=== PATIENT | male | born 1945 | race Caucasian/White ===

== ENCOUNTER 2017-07-23 08:52 | Emergency (ER) | payer MEDICARE | END 2017-07-23 13:25 | disposition home or self-care (01) | LOC: ERS 08:52 | DX: J20.9 Acute bronchitis, unspecified (principal); E11.9 Type 2 diabetes mellitus without complications; J45.909 Unspecified asthma, uncomplicated ==

== ENCOUNTER 2018-02-12 16:18 | Emergency (ER) | payer MEDICARE ==
[~2018-02-12 16:18] MED LIST: ISOVUE-370 76%-LOCM 1 ML ONE
[2018-02-12 17:04] LABS: #Eosinphils 1.2 thou/uL (0.0-0.7); #Lymphocytes 0.8 thou/uL (1.20-3.40); #Monocytes 0.6 thou/uL (0.11-0.59); #Neutrophils 6.3 thou/uL (1.40-6.50); %Basophils 0.2 % (0.0-1.0); %Eosinophils 13.2 % (0.0-10.0); %Lymphocytes 8.6 % (21.0-51.0); %Monocytes 6.8 % (0.0-10.0); %Neutrophils 71.3 % (42.0-75.0); Mean Corpuscular HGB CONC 33.9 g/dL (32.0-36.0); Mean Corpuscular Hemoglobin 32.8 pg (27.0-31.0); Mean Corpuscular Volume 96.7 fL (78.0-98.0); Mean Platelet Volume 5.7 fL (7.4-10.4); Platelet Count 331 thou/uL (130-400); Red Blood Cell (RBC) Count 4.56 mill/uL (4.70-6.10); White Blood Cell (WBC) Count 8.9 thou/uL (4.8-10.8)
[2018-02-12] MEDS ORDERED: Ibuprofen 200 MG TAB ONE (17:22)
[2018-02-12] MEDS ORDERED: Ondansetron ODT 4 MG TAB ONE (17:22)
[2018-02-12 17:31] LABS: ALT (SGPT) 7 U/L (8-55); AST (SGOT) 13 U/L (5-34); Albumin 3.4 g/dL (3.4-4.8); Alkaline Phosphatase 94 U/L (40-150); Anion Gap 14 mmol/L (10-20); BUN (Urea Nitrogen) 9 mg/dL (8.4-25.7); Bilirubin, Total 0.5 mg/dL (0.2-1.2); Calc. Creatinine Clearance 0 mL/min (70-130); Calcium 9.1 mg/dL (7.8-10.44); Carbon Dioxide 26 mmol/L (23-31); Chloride 93 mmol/L (98-107); Estimated GFR-MDRD 75; Globulin 3.1 g/dL (2.4-3.5); Glucose 134 mg/dL (83-110); Lipase 37 U/L (8-78); Potassium 3.7 mmol/L (3.5-5.1); Protein, Total 6.5 g/dL (5.8-8.1); Sodium 129 mmol/L (136-145)
[2018-02-12 17:36] LABS: CKMB 1.5 ng/mL (0-6.6); Troponin I Less than 0.010 ng/mL (< 0.028)
--- NOTE | 2018-02-12 18:56 | RAD ---
PA AND LATERAL VIEWS OF CHEST: Date: 02/12/18 HISTORY: Chest pain. FINDINGS: Comparison made with exam of 07/12/16. The heart size is normal. The aorta is tortuous. The lungs are well expanded without lobar consolidat ion, pneumothoraces, or pleural effusions. Lower thoracic compression fracture is again seen. IMPRESSION: No radiographic evidence of acute cardiopulmonary process. POS: [facility]
[2018-02-12] MEDS ORDERED: Ondansetron HCl/PF 4 MG/2 ML Vial ONE (19:19)
--- NOTE | 2018-02-12 19:33 | CT ---
CT PULMONARY ANGIOGRAM WITH IV CONTRAST AND 3D POST PROCESSING: HISTORY: Cough. Chest pain. FINDINGS: There is good contrast opacification of the pulmonary arterial vasculature without filling defects to suggest pulmonary embolism. No aneurysmal dilatation of the thoracic aorta is seen. The thoracic a ashish is ectatic, measuring 4 cm in maximum AP dimension, in the ascending aorta. No pleural or peric ardial effusions are seen. No pneumothoraces or lobar consolidation are identified. There are mild bronchiectatic changes and mild reticulonodular infiltrates in the upper lung liu. There are dege nerative changes in the spine. Vascular calcifications are present. A small hiatal hernia is noted. IMPRESSION: No CT evidence of pulmonary embolism. POS: [facility]
== END 2018-02-12 20:02 | disposition home or self-care (01) ==
LOC: ERS 16:18
DX: M54.6 Pain in thoracic spine (principal); E87.1 Hypo-osmolality and hyponatremia; I10 Essential (primary) hypertension
CPT/HCPCS: 36415; 71046; 71275; 80053; 82553; 83690; 84484; 85025; 93005; 96374; J2405; Q0162

== ENCOUNTER 2018-02-20 10:04 | Emergency (ER) | payer MEDICARE | END 2018-02-20 12:02 | disposition home or self-care (01) | LOC: ERS 10:04 | DX: R09.89 Other specified symptoms and signs involving the circulatory and respiratory systems (principal); I10 Essential (primary) hypertension; E11.9 Type 2 diabetes mellitus without complications; J45.909 Unspecified asthma, uncomplicated | CPT/HCPCS: 99283 ==

== ENCOUNTER 2020-12-25 17:48 | Inpatient (IN) | payer MEDICARE ==
[~2020-12-25 17:48] MED LIST changes: -ISOVUE-370 76%-LOCM 1 ML ONE; +Iopamidol-370 76% 500 ML 1 ML ONE
[2020-12-25 18:23] LABS: Bacteria/HPF None Seen HPF (None Seen); Bilirubin Negative (Negative); Blood, Urine Trace (Negative); Clarity Clear (Clear); Glucose, Urine (Dipstick) Normal (Negative); Ketone, Urine Negative (Negative); Leukocyte Negative Leu/uL (Negative); Nitrite Negative (Negative); Protein, Urine (Dipstick) 50 mg/dL (Neg-Trace); Specific Gravity, Urine 1.026 (1.002-1.036); Squamous Epithelial None Seen HPF (0-3); WBC/HPF 0-3 HPF (0-3); pH, Urine 5.5 (5.0-9.0)
[2020-12-25 18:26] LABS: Hemoglobin 15.3 g/dL (14.0-18.0); Mean Corpuscular HGB CONC 33.2 g/dL (32.0-36.0); Mean Corpuscular Hemoglobin 31.1 pg (27.0-31.0); Mean Corpuscular Volume 93.6 fL (78.0-98.0); Mean Platelet Volume 5.8 fL (7.4-10.4); Platelet Count 402 thou/uL (130-400); RBC Distribution Width 12.5 % (11.5-14.5); White Blood Cell (WBC) Count 19.1 thou/uL (4.8-10.8)
[2020-12-25 18:38] LABS: Band 12 % (5-11); Eosinophils 5 % (0-10); Lymphocytes 3 % (21-51); MDiff Complete? YES; Monocytes 6 % (0-10); Neutrophil 73 % (42-75); Platelet Morphology Comment Appears Increased; RBC Morphology Normal; Reactive Lymphocytes 1 % (0-10)
[2020-12-25 18:44] LABS: ALT (SGPT) 10 U/L (8-55); AST (SGOT) 13 U/L (5-34); Albumin 3.3 g/dL (3.4-4.8); Alkaline Phosphatase 111 U/L (40-110); Anion Gap 13 mmol/L (10-20); BUN (Urea Nitrogen) 11 mg/dL (8.4-25.7); Bilirubin, Total 0.6 mg/dL (0.2-1.2); Calc. Creatinine Clearance 0 mL/min (70-130); Calcium 9.8 mg/dL (7.8-10.44); Carbon Dioxide 28 mmol/L (23-31); Chloride 92 mmol/L (98-107); Globulin 3.1 g/dL (2.4-3.5); Glucose 177 mg/dL (83-110); Lipase 24 U/L (8-78); Magnesium 1.6 mg/dL (1.6-2.6); Potassium 4.4 mmol/L (3.5-5.1); Protein, Total 6.4 g/dL (5.8-8.1); Sodium 129 mmol/L (136-145)
[2020-12-25] MEDS ORDERED: Ondansetron PF 4 MG/2 ML Vial ONE (21:33)
[2020-12-25] MEDS ORDERED: Sodium Chloride 0.9% 1,000 ML IV SCH (23:45)
[2020-12-26 00:27] VITALS: BMI 19.4
[2020-12-26] MEDS ORDERED: Famotidine/PF 20 mg/2ml Vial SLOW IVP SCH (09:00)
[2020-12-26] MEDS ORDERED: Bisacodyl 5 MG TAB PO PRN (09:08)
[2020-12-26] MEDS ORDERED: Ondansetron PF 4 MG/2 ML Vial IVP PRN (09:08)
[2020-12-26] MEDS ORDERED: Morphine 2 MG/ML VIAL SLOW IVP PRN (09:08)
[2020-12-26] MEDS ORDERED: Piperacillin/Tazobactam 3.375 GM in Sodium Chloride 0.9% 100 ML IVPB SCH ×2 (12:00→20:00)
[2020-12-26] MEDS ORDERED: Dextrose 50% Abboject 50 ML SYRINGE SLOW IVP PRN (13:26)
[2020-12-26] MEDS ORDERED: HumaLOG 300 UNITS/3 ML VIAL SC PRN (13:26)
[2020-12-26] MEDS ORDERED: Dextrose 5% in Water 1,000 ML IV PRN (13:26)
[2020-12-26 16:09] VITALS: BP 140/87; TEMP 97.3
[2020-12-26 20:58] LABS: SARS-CoV-2 PCR by NAA Not Detected (NotDetected)
[2020-12-27] MEDS ORDERED: Enoxaparin Sodium 40 MG/0.4 ML SYRINGE SC SCH (09:00)
== END 2020-12-26 19:31 | disposition home or self-care (01) | DRG 389 ==
LOC: ERS 17:48 → SURG B 21:58
PROVIDERS: ADMIT Student in an Organized Health Care Education/Training Program; ATTEND Student in an Organized Health Care Education/Training Program
PROC: 0D9670Z Drainage of Stomach with Drainage Device, Via Natural or Artificial Opening (ICD-10-PCS; principal; 2020-12-25)
DX: K56.699 Other intestinal obstruction unspecified as to partial versus complete obstruction (principal); E87.1 Hypo-osmolality and hyponatremia; K59.00 Constipation, unspecified; Z20.822 Contact with and (suspected) exposure to COVID-19; Z66 Do not resuscitate; Z53.29 Procedure and treatment not carried out because of patient's decision for other reasons; E11.9 Type 2 diabetes mellitus without complications; I10 Essential (primary) hypertension; D72.829 Elevated white blood cell count, unspecified; J44.9 Chronic obstructive pulmonary disease, unspecified; Z79.84 Long term (current) use of oral hypoglycemic drugs; Z79.899 Other long term (current) drug therapy
CPT/HCPCS: 36415; 36416; 74018; 74177; 80053; 81003; 81015; 83690; 83735; 84484; 85025; 87040; 93005; 96374; J2405; J2543; J3490; J7050; Q9967; S0028; U0003; U0005

== ENCOUNTER 2021-01-04 10:52 | Outpatient (CLI) | payer MEDICARE ==
[2021-01-05 00:58] LABS: SARS-CoV-2 PCR by NAA Not Detected (NotDetected)
== END 2021-01-04 10:53 | disposition home or self-care (01) ==
LOC: LABBT 10:52
PROVIDERS: ATTEND Physician Assistant
DX: Z01.812 Encounter for preprocedural laboratory examination (principal); Z20.822 Contact with and (suspected) exposure to COVID-19
CPT/HCPCS: U0003; U0005

== ENCOUNTER 2021-01-08 08:22 | Outpatient (CLI) | payer MEDICARE ==
[2021-01-08] MEDS ORDERED: MD-Gastroview 120 ML BOT ONE (09:20)
== END 2021-01-08 08:23 | disposition home or self-care (01) ==
LOC: RAD 08:22
PROVIDERS: ATTEND Physician Assistant
DX: K56.609 Unspecified intestinal obstruction, unspecified as to partial versus complete obstruction (principal); K44.9 Diaphragmatic hernia without obstruction or gangrene
CPT/HCPCS: 74250; Q9963

== ENCOUNTER 2021-04-16 15:00 | Outpatient (CLI) | payer MEDICARE ==
[2021-04-16 18:53] LABS: Hemoglobin 12.2 g/dL (13.5-17.5); Mean Corpuscular HGB CONC 32.4 g/dL (32.0-36.0); Mean Corpuscular Hemoglobin 29.8 pg (27.0-33.0); Mean Corpuscular Volume 91.9 fl (81.2-95.1); Mean Platelet Volume 8.6 fl (7.4-10.4); Platelet Count 354 10x3/uL (150-450); RBC Distribution Width 13.2 % (11.5-14.5); Red Blood Cell (RBC) Count 4.09 10x6/uL (4.32-5.72); White Blood Cell (WBC) Count 6.1 10x3/uL (3.5-10.5)
[2021-04-16 19:03] LABS: Anion Gap 11 mmol/L (10-20); BUN (Urea Nitrogen) 13 mg/dL (8.4-25.7); Calc. Creatinine Clearance 0 mL/min (70-130); Carbon Dioxide 29 mmol/L (23-31); Chloride 99 mmol/L (98-107); Glucose 174 mg/dL (83-110); Potassium 4.3 mmol/L (3.5-5.1); Sodium 135 mmol/L (136-145)
[2021-04-17 18:14] LABS: SARS-CoV-2 PCR by NAA Not Detected (NotDetected)
== END 2021-04-16 15:01 | disposition home or self-care (01) ==
LOC: LABBT 15:00
PROVIDERS: ATTEND Otolaryngology Plastic Surgery within the Head & Neck
DX: Z01.812 Encounter for preprocedural laboratory examination (principal); C44.42 Squamous cell carcinoma of skin of scalp and neck; Z20.822 Contact with and (suspected) exposure to COVID-19
CPT/HCPCS: 80048; 85027; 93005; U0003; U0005; 93010

== ENCOUNTER 2021-04-21 09:50 | Day surgery (SDC) | payer MEDICARE ==
[2021-04-20 11:55] VITALS: BMI 23.6
[2021-04-21] MEDS ORDERED: Lidocaine 1% w/Epinephrine 1:100K 20 ML VIAL ONE (12:42)
[2021-04-21] MEDS ORDERED: Mineral Oil Sterile 10 ML VIAL ONE (12:42)
[2021-04-21] MEDS ORDERED: Famotidine/PF 20 mg/2ml Vial ONE (12:50)
[2021-04-21] MEDS ORDERED: Fentanyl 100 MCG/2 ML VIAL ONE (12:50)
[2021-04-21] MEDS ORDERED: Lidocaine 1% PF 5 ML VIAL ONE (13:01)
[2021-04-21] MEDS ORDERED: ePHEDrine 50 MG/ML VIAL ONE (13:01)
[2021-04-21] MEDS ORDERED: Metoclopramide HCl 10 MG/2 ML VIAL ONE (13:01)
[2021-04-21] MEDS ORDERED: PROPOFOL 200 MG/20 ML VIAL ONE (13:01)
[2021-04-21] MEDS ORDERED: Ondansetron PF 4 MG/2 ML Vial ONE (13:01)
== END 2021-04-21 15:18 | disposition home or self-care (01) ==
LOC: SDC 09:50
PROVIDERS: ATTEND Otolaryngology Plastic Surgery within the Head & Neck
PROC: 0HB0XZZ Excision of Scalp Skin, External Approach (ICD-10-PCS; principal; 2021-04-21)
DX: D04.4 Carcinoma in situ of skin of scalp and neck (principal); J45.909 Unspecified asthma, uncomplicated; E11.9 Type 2 diabetes mellitus without complications; Z85.46 Personal history of malignant neoplasm of prostate; Z87.891 Personal history of nicotine dependence; Z79.84 Long term (current) use of oral hypoglycemic drugs; Z79.899 Other long term (current) drug therapy
CPT/HCPCS: 88305; 88331; J2405; J2704; J2765; J3010; J3490; S0028

== ENCOUNTER 2021-10-05 16:11 | Outpatient (CLI) | payer MEDICARE | END 2021-10-05 16:12 | disposition home or self-care (01) | LOC: SCSRAD 16:11 | PROVIDERS: ATTEND Physician Assistant | DX: L29.9 Pruritus, unspecified (principal); R91.8 Other nonspecific abnormal finding of lung field | CPT/HCPCS: 71046 ==

== ENCOUNTER 2021-11-02 16:01 | Outpatient (CLI) | payer MEDICARE ==
[2021-11-02 16:58] LABS: #Basophils 0.1 10x3/uL (0.0-0.2); #Eosinphils 0.8 10x3/uL (0.0-0.5); #Monocytes 0.8 10x3/uL (0.0-1.1); #Neutrophils 4.9 10x3/uL (1.5-8.4); %Basophils 0.7 % (0.0-2.0); %Lymphocytes 10.5 % (18.0-47.0); %Monocytes 10.7 % (0.0-10.0); %Neutrophils 66.8 % (40.0-75.0); Hemoglobin 12.3 g/dL (13.5-17.5); Mean Corpuscular HGB CONC 33.4 g/dL (32.0-36.0); Mean Corpuscular Hemoglobin 30.4 pg (27.0-33.0); Mean Corpuscular Volume 91.1 fl (81.2-95.1); Mean Platelet Volume 8.8 fl (7.4-10.4); Platelet Count 306 10x3/uL (150-450); RBC Distribution Width 14.4 % (11.5-14.5); Red Blood Cell (RBC) Count 4.04 10x6/uL (4.32-5.72); White Blood Cell (WBC) Count 7.4 10x3/uL (3.5-10.5)
[2021-11-02 17:19] LABS: Anion Gap 11 mmol/L (10-20); BUN (Urea Nitrogen) 17 mg/dL (8.4-25.7); Calc. Creatinine Clearance 0 mL/min (70-130); Carbon Dioxide 29 mmol/L (23-31); Chloride 95 mmol/L (98-107); Estimated GFR 67; Glucose 159 mg/dL (83-110); Potassium 4.3 mmol/L (3.5-5.1); Sodium 131 mmol/L (136-145)
== END 2021-11-02 16:02 | disposition home or self-care (01) ==
LOC: LABBT 16:01
PROVIDERS: ATTEND Specialist
DX: Z01.812 Encounter for preprocedural laboratory examination (principal); Z20.822 Contact with and (suspected) exposure to COVID-19
CPT/HCPCS: 80048; 85025; 87811

== ENCOUNTER 2021-11-05 08:44 | Day surgery (SDC) | payer MEDICARE ==
[2021-11-03 10:29] VITALS: BMI 21.2
[2021-11-05] MEDS ORDERED: Bupivacaine 0.25% HCL 30 ML VIAL ONE (09:11)
[2021-11-05] MEDS ORDERED: Lidocaine 1% w/Epinephrine 1:100K 20 ML VIAL ONE (09:11)
[2021-11-05] MEDS ORDERED: Gabapentin 300 MG CAP ONE (09:27)
[2021-11-05] MEDS ORDERED: Acetaminophen 500 MG TAB ONE (09:27)
[2021-11-05] MEDS ORDERED: Ketorolac Tromethamine 30 MG/ML VIAL ONE (09:28)
[2021-11-05] MEDS ORDERED: SUGAMMADEX SODIUM 200 MG/2 ML VIAL ONE (09:59)
[2021-11-05] MEDS ORDERED: fentaNYL Citrate/PF 100 MCG/2 ML SYRINGE ONE (09:59)
[2021-11-05] MEDS ORDERED: Sodium Chloride 0.9% 100 ML ONE (10:03)
[2021-11-05] MEDS ORDERED: CEFAZOLIN 2 GM VIAL ONE (10:03)
[2021-11-05] MEDS ORDERED: Lidocaine 1% PF 5 ML VIAL ONE (10:15)
[2021-11-05] MEDS ORDERED: Dexamethasone 20 MG/5 ML VIAL ONE (10:15)
[2021-11-05] MEDS ORDERED: Rocuronium Bromide 10 MG/ML (10ML VIAL) ONE (10:15)
[2021-11-05] MEDS ORDERED: PROPOFOL 200 MG/20 ML VIAL ONE (10:15)
[2021-11-05] MEDS ORDERED: Ondansetron PF 4 MG/2 ML Vial ONE ×2 (10:15→12:23)
[2021-11-05] MEDS ORDERED: Fentanyl 100 MCG/2 ML VIAL ONE ×2 (11:52→12:09)
== END 2021-11-05 14:03 | disposition home or self-care (01) ==
LOC: SDC 08:44
PROVIDERS: ATTEND Specialist
PROC: 8E0W4CZ Robotic Assisted Procedure of Trunk Region, Percutaneous Endoscopic Approach (ICD-10-PCS; principal; 2021-11-05)
PROC: 0YU84JZ Supplement Left Femoral Region with Synthetic Substitute, Percutaneous Endoscopic Approach (ICD-10-PCS; 2021-11-05)
DX: K41.90 Unilateral femoral hernia, without obstruction or gangrene, not specified as recurrent (principal); K66.0 Peritoneal adhesions (postprocedural) (postinfection); I10 Essential (primary) hypertension; J45.909 Unspecified asthma, uncomplicated; E11.9 Type 2 diabetes mellitus without complications; Z85.46 Personal history of malignant neoplasm of prostate; Z87.891 Personal history of nicotine dependence; Z79.84 Long term (current) use of oral hypoglycemic drugs; Z79.899 Other long term (current) drug therapy
CPT/HCPCS: 49659; C1781; J0690; J1100; J1885; J2405; J2704; J3010; J3490; S0020

== ENCOUNTER 2022-04-20 16:10 | Outpatient (CLI) | payer OTHER | END 2022-04-20 16:11 | disposition home or self-care (01) | LOC: BICRAD 16:10 | PROVIDERS: ATTEND Nurse Practitioner Family | DX: R05.9 Cough, unspecified (principal) | CPT/HCPCS: 71046; U0003; U0005 ==

== ENCOUNTER 2022-06-01 17:30 | Outpatient (CLI) | payer OTHER | END 2022-06-01 17:31 | disposition home or self-care (01) | LOC: SLEEPLAB 17:30 | PROVIDERS: ATTEND Nurse Practitioner Family | DX: G47.33 Obstructive sleep apnea (adult) (pediatric) (principal) | CPT/HCPCS: 95800 ==

== ENCOUNTER 2022-12-01 09:00 | Inpatient (IN) | payer OTHER ==
[2022-12-01] MEDS ORDERED: methylPREDNISolone Sod Succ/PF 125 MG/2 ML VIAL ONE (09:20)
[2022-12-01] MEDS ORDERED: Magnesium 2 GM/50 ML BAG (IN WATER) ONE (09:20)
[2022-12-01] MEDS ORDERED: LevoFLOXacin 750 mg/D5W 150 ml Premix Bag ONE (09:20)
[2022-12-01] MEDS ORDERED: Ipratropium/Albuterol 3 ML NEB ONE ×2 (09:32→10:08)
[2022-12-01 09:38] LABS: #Eosinphils 0.1 thou/uL (0.0-0.7); #Monocytes 1.1 thou/uL (0.11-0.59); #Neutrophils 4.9 thou/uL (1.40-6.50); %Basophils 0.1 % (0.0-1.0); %Eosinophils 1.1 % (0.0-10.0); %Lymphocytes 15.4 % (21.0-51.0); Hemoglobin 13.8 g/dL (14.0-18.0); Mean Corpuscular HGB CONC 35.4 g/dL (32.0-36.0); Mean Corpuscular Hemoglobin 30.7 pg (27.0-31.0); Mean Corpuscular Volume 86.7 fl (78.0-98.0); Mean Platelet Volume 8.5 fL (7.4-10.4); Platelet Count 341 10x3/uL (130-400); RBC Distribution Width 14.9 % (11.5-14.5); White Blood Cell (WBC) Count 7.1 10x3/uL (4.8-10.8)
[2022-12-01 10:05] LABS: ALT (SGPT) 10 U/L (8-55); AST (SGOT) 16 U/L (5-34); Albumin 3.2 g/dL (3.4-4.8); Alkaline Phosphatase 77 U/L (40-110); Anion Gap 13 mmol/L (10-20); BUN (Urea Nitrogen) 17 mg/dL (8.4-25.7); Bilirubin, Total 0.6 mg/dL (0.2-1.2); Calc. Creatinine Clearance 0 mL/min (70-130); Calcium 8.9 mg/dL (7.8-10.44); Carbon Dioxide 28 mmol/L (23-31); Chloride 88 mmol/L (98-107); Estimated GFR 90; Globulin 2.9 g/dL (2.4-3.5); Glucose 173 mg/dL (83-110); Lipase 27 U/L (8-78); Magnesium 1.6 mg/dL (1.6-2.6); Potassium 4.5 mmol/L (3.5-5.1); Protein, Total 6.1 g/dL (5.8-8.1); Sodium 124 mmol/L (136-145)
[2022-12-01] MEDS ORDERED: Acetaminophen 325 MG TAB PO PRN (11:19)
[2022-12-01] MEDS ORDERED: Dextrose 5% in Water 1,000 ML IV PRN (11:19)
[2022-12-01] MEDS ORDERED: Dextrose 50% Abboject 50 ML SYRINGE SLOW IVP PRN (11:19)
[2022-12-01] MEDS ORDERED: Ondansetron PF 4 MG/2 ML Vial IVP PRN (11:19)
[2022-12-01] MEDS ORDERED: Glucagon 1 MG/ML KIT IM PRN (11:19)
[2022-12-01 12:10] VITALS: BMI 17.3
[2022-12-01] MEDS: Ipratropium/Albuterol 3 ML NEB NEB SCH ×3 (13:04→21:30)
[2022-12-01] MEDS: methylPREDNISolone Sod Succ 40 MG VIAL IVP SCH ×3 (13:13→23:49)
[2022-12-01] MEDS: HumaLOG 300 UNITS/3 ML VIAL SC PRN ×2 (17:48→21:15)
[2022-12-01] MEDS: Mometasone 200 MCG/Formoterol 5 MCG 120 PUFF INHALER INH SCH (18:42)
[2022-12-01] MEDS: Atorvastatin Calcium 40 MG TAB PO SCH (21:00)
[2022-12-01] MEDS: Famotidine 20 MG TAB PO SCH (21:01)
[2022-12-01] MEDS: guaiFENesin ER 600 MG TAB PO SCH (21:01)
[2022-12-01] MEDS: Doxycycline 100 MG CAP PO SCH (21:01)
[2022-12-01] MEDS: Carvedilol 6.25 MG TAB PO SCH (21:01)
[2022-12-01] MEDS: Sacubitril 49 MG/Valsartan 51 MG TABLET PO SCH (21:02)
[2022-12-02] MEDS: Ipratropium/Albuterol 3 ML NEB NEB SCH ×6 (01:16→21:58)
[2022-12-02] MEDS: methylPREDNISolone Sod Succ 40 MG VIAL IVP SCH ×4 (05:14→23:27)
[2022-12-02] MEDS: HumaLOG 300 UNITS/3 ML VIAL SC PRN ×4 (05:15→21:25)
[2022-12-02 06:01] LABS: #Monocytes 0.4 thou/uL (0.11-0.59); #Neutrophils 6.7 thou/uL (1.40-6.50); %Basophils 0.1 % (0.0-1.0); %Lymphocytes 6.1 % (21.0-51.0); %Monocytes 5.5 % (0.0-10.0); %Neutrophils 87.8 % (42.0-75.0); Hemoglobin 12.3 g/dL (14.0-18.0); Mean Corpuscular HGB CONC 34.5 g/dL (32.0-36.0); Mean Corpuscular Hemoglobin 30.2 pg (27.0-31.0); Mean Corpuscular Volume 87.7 fl (78.0-98.0); Mean Platelet Volume 8.7 fL (7.4-10.4); Platelet Count 306 10x3/uL (130-400); RBC Distribution Width 14.9 % (11.5-14.5); Red Blood Cell (RBC) Count 4.07 mill/uL (4.70-6.10); White Blood Cell (WBC) Count 7.6 10x3/uL (4.8-10.8)
[2022-12-02 06:32] LABS: Anion Gap 11 mmol/L (10-20); BUN (Urea Nitrogen) 15 mg/dL (8.4-25.7); Calc. Creatinine Clearance 64 mL/min (70-130); Calcium 8.6 mg/dL (7.8-10.44); Carbon Dioxide 29 mmol/L (23-31); Chloride 89 mmol/L (98-107); Estimated GFR 90; Glucose 179 mg/dL (83-110); Potassium 4.5 mmol/L (3.5-5.1); Sodium 124 mmol/L (136-145)
[2022-12-02] MEDS: Mometasone 200 MCG/Formoterol 5 MCG 120 PUFF INHALER INH SCH ×2 (06:59→18:47)
[2022-12-02] MEDS: Famotidine 20 MG TAB PO SCH ×2 (10:29→20:33)
[2022-12-02] MEDS: Sertraline 25 MG TAB PO SCH (10:29)
[2022-12-02] MEDS: Aspirin 81 mg Enteric Coated Tablet PO SCH (10:30)
[2022-12-02] MEDS: Magnesium Oxide 400 MG TAB PO SCH (10:30)
[2022-12-02] MEDS: guaiFENesin ER 600 MG TAB PO SCH ×2 (10:31→20:33)
[2022-12-02] MEDS: Spironolactone 25 MG TAB PO SCH (10:31)
[2022-12-02] MEDS: Carvedilol 6.25 MG TAB PO SCH ×2 (10:31→20:33)
[2022-12-02] MEDS: Ferrous Sulfate 325 MG TAB PO SCH (10:32)
[2022-12-02] MEDS: Doxycycline 100 MG CAP PO SCH ×2 (10:32→20:33)
[2022-12-02] MEDS: Sacubitril 49 MG/Valsartan 51 MG TABLET PO SCH ×2 (10:33→20:34)
[2022-12-02] MEDS ORDERED: Linaclotide [Linzess] 145 MCG Capsule PO SCH (17:45)
[2022-12-02] MEDS: Atorvastatin Calcium 40 MG TAB PO SCH (20:33)
[2022-12-03] MEDS: Ipratropium/Albuterol 3 ML NEB NEB SCH ×3 (01:36→10:48)
[2022-12-03] MEDS: methylPREDNISolone Sod Succ 40 MG VIAL IVP SCH ×2 (05:25→11:32)
[2022-12-03] MEDS: Mometasone 200 MCG/Formoterol 5 MCG 120 PUFF INHALER INH SCH (07:30)
[2022-12-03] MEDS: Magnesium Oxide 400 MG TAB PO SCH (07:58)
[2022-12-03] MEDS: Spironolactone 25 MG TAB PO SCH (07:59)
[2022-12-03] MEDS: Aspirin 81 mg Enteric Coated Tablet PO SCH (07:59)
[2022-12-03] MEDS: Doxycycline 100 MG CAP PO SCH (07:59)
[2022-12-03] MEDS: guaiFENesin ER 600 MG TAB PO SCH (07:59)
[2022-12-03] MEDS: Famotidine 20 MG TAB PO SCH (07:59)
[2022-12-03] MEDS: Carvedilol 6.25 MG TAB PO SCH (07:59)
[2022-12-03] MEDS: Sertraline 25 MG TAB PO SCH (07:59)
[2022-12-03] MEDS: Ferrous Sulfate 325 MG TAB PO SCH (07:59)
[2022-12-03] MEDS: Sacubitril 49 MG/Valsartan 51 MG TABLET PO SCH (08:00)
[2022-12-03 08:19] VITALS: TEMP 97.6
[2022-12-03] MEDS ORDERED: Linaclotide [Linzess] 145 MCG Capsule PO SCH (09:00)
[2022-12-03] MEDS: HumaLOG 300 UNITS/3 ML VIAL SC PRN (11:30)
[2022-12-03 11:36] VITALS: BP 118/70
== END 2022-12-03 12:56 | disposition home or self-care (01) | DRG 191 ==
LOC: ERS 09:00 → T4-B 11:49 → OBSVTOIN 12-02 12:55
PROVIDERS: ADMIT Internal Medicine; ATTEND Internal Medicine
DX: J44.1 Chronic obstructive pulmonary disease with (acute) exacerbation (principal); E87.1 Hypo-osmolality and hyponatremia; Z95.811 Presence of heart assist device; I50.22 Chronic systolic (congestive) heart failure; I11.0 Hypertensive heart disease with heart failure; I25.10 Atherosclerotic heart disease of native coronary artery without angina pectoris; E11.9 Type 2 diabetes mellitus without complications; Z79.82 Long term (current) use of aspirin; Z79.899 Other long term (current) drug therapy; Z90.79 Acquired absence of other genital organ(s); Z90.89 Acquired absence of other organs; Z98.890 Other specified postprocedural states; Z87.891 Personal history of nicotine dependence
CPT/HCPCS: 36415; 36416; 71045; 80048; 80053; 83605; 83690; 83735; 83880; 84484; 85025; 93005; 94640; 94664; 94667; 94668; 96365; 96367; 96372; 96375; 96376; G0378; J1650; J1815; J1956; J2405; J2920; J2930; J3475; J7620

== ENCOUNTER 2023-03-08 11:19 | Inpatient (IN) | payer OTHER ==
[2023-03-08] MEDS ORDERED: Ondansetron PF 4 MG/2 ML Vial IVP PRN (13:24)
[2023-03-08] MEDS ORDERED: Morphine 2 MG/ML VIAL SLOW IVP PRN (13:24)
[2023-03-08 13:25] LABS: #Eosinphils 0.5 thou/uL (0.0-0.7); #Monocytes 0.7 thou/uL (0.11-0.59); #Neutrophils 7.5 thou/uL (1.40-6.50); %Basophils 0.2 % (0.0-1.0); %Eosinophils 5.4 % (0.0-10.0); %Lymphocytes 6.6 % (21.0-51.0); %Monocytes 7.8 % (0.0-10.0); %Neutrophils 78.8 % (42.0-75.0); Hemoglobin 11.3 g/dL (14.0-18.0); Mean Corpuscular HGB CONC 34.2 g/dL (32.0-36.0); Mean Corpuscular Hemoglobin 32.9 pg (27.0-31.0); Mean Corpuscular Volume 96.2 fl (78.0-98.0); Mean Platelet Volume 8.8 fL (7.4-10.4); Platelet Count 305 10x3/uL (130-400); RBC Distribution Width 12.8 % (11.5-14.5); Red Blood Cell (RBC) Count 3.43 mill/uL (4.70-6.10); White Blood Cell (WBC) Count 9.5 10x3/uL (4.8-10.8)
[2023-03-08] MEDS ORDERED: Cyclobenzaprine 10 MG TAB PO PRN (13:28)
[2023-03-08 13:38] LABS: PTT 25.6 sec (22.9-36.1)
[2023-03-08 13:46] LABS: INR-International Normal Ratio 1.2; Prothrombin Time 15.5 sec (12.0-14.7)
[2023-03-08 13:51] LABS: Troponin I 0.014 ng/mL (< 0.028)
[2023-03-08 14:07] LABS: ALT (SGPT) 20 U/L (8-55); AST (SGOT) 25 U/L (5-34); Albumin 2.6 g/dL (3.4-4.8); Alkaline Phosphatase 92 U/L (40-110); Anion Gap 15 mmol/L (10-20); BUN (Urea Nitrogen) 25 mg/dL (8.4-25.7); Bilirubin, Total 0.3 mg/dL (0.2-1.2); Calc. Creatinine Clearance 0 mL/min (70-130); Calcium 8.1 mg/dL (7.8-10.44); Carbon Dioxide 24 mmol/L (23-31); Chloride 93 mmol/L (98-107); Estimated GFR 87; Globulin 2.4 g/dL (2.4-3.5); Glucose 271 mg/dL (83-110); Sodium 128 mmol/L (136-145)
[2023-03-08] MEDS ORDERED: Glucagon 1 MG/ML KIT IM PRN (14:49)
[2023-03-08] MEDS ORDERED: Dextrose 50% Abboject 50 ML SYRINGE SLOW IVP PRN (14:49)
[2023-03-08] MEDS ORDERED: Dextrose 5% in Water 1,000 ML IV PRN (14:49)
[2023-03-08] MEDS: Ipratropium/Albuterol 3 ML NEB NEB SCH ×2 (17:23→18:49)
[2023-03-08] MEDS: Acetaminophen 500 MG TAB PO SCH ×2 (17:23→22:22)
[2023-03-08] MEDS: traMADol HCl 50 MG TAB PO SCH ×2 (17:24→22:22)
[2023-03-08] MEDS: HumaLOG 300 UNITS/3 ML VIAL SC PRN ×2 (17:50→20:23)
[2023-03-08 18:28] VITALS: BMI 19.3
[2023-03-08] MEDS: Famotidine/PF 20 mg/2ml Vial SLOW IVP SCH (20:19)
[2023-03-08] MEDS: Senokot S 8.6-50 MG TAB PO SCH (20:19)
[2023-03-08] MEDS: Insulin Glargine 30 UNITS/0.3 ML VIAL SC SCH (20:20)
[2023-03-08] MEDS ORDERED: Atorvastatin Calcium 40 MG TAB PO SCH (21:00)
[2023-03-09] MEDS: traMADol HCl 50 MG TAB PO SCH ×4 (05:16→23:52)
[2023-03-09] MEDS: Acetaminophen 500 MG TAB PO SCH ×4 (05:16→23:52)
[2023-03-09 05:43] LABS: #Eosinphils 0.7 thou/uL (0.0-0.7); #Monocytes 0.7 thou/uL (0.11-0.59); #Neutrophils 5.2 thou/uL (1.40-6.50); %Basophils 0.4 % (0.0-1.0); %Eosinophils 8.8 % (0.0-10.0); %Lymphocytes 11.9 % (21.0-51.0); %Monocytes 9.4 % (0.0-10.0); %Neutrophils 68.1 % (42.0-75.0); Hematocrit 33.7 % (42.0-52.0); Hemoglobin 11.4 g/dL (14.0-18.0); Mean Corpuscular HGB CONC 33.8 g/dL (32.0-36.0); Mean Corpuscular Hemoglobin 32.6 pg (27.0-31.0); Mean Corpuscular Volume 96.3 fl (78.0-98.0); Mean Platelet Volume 8.9 fL (7.4-10.4); Platelet Count 278 10x3/uL (130-400); RBC Distribution Width 13.1 % (11.5-14.5); White Blood Cell (WBC) Count 7.6 10x3/uL (4.8-10.8)
[2023-03-09 05:54] LABS: INR-International Normal Ratio 1.2; PTT 29.3 sec (22.9-36.1); Prothrombin Time 15.8 sec (12.0-14.7)
[2023-03-09 06:10] LABS: Anion Gap 11 mmol/L (10-20); BUN (Urea Nitrogen) 22 mg/dL (8.4-25.7); Calc. Creatinine Clearance 75 mL/min (70-130); Calcium 8.2 mg/dL (7.8-10.44); Carbon Dioxide 28 mmol/L (23-31); Chloride 95 mmol/L (98-107); Estimated GFR 91; Glucose 60 mg/dL (83-110); Magnesium 1.3 mg/dL (1.6-2.6); Potassium 3.4 mmol/L (3.5-5.1); Sodium 131 mmol/L (136-145)
[2023-03-09] MEDS ORDERED: Magnesium Sulfate In Water 4 GM in Premix 1 BAG IVPB SCH (08:30)
[2023-03-09] MEDS ORDERED: Potassium Phosphate 30 MMOL in Sodium Chloride 0.9% 250 ML 250 ML IVPB SCH (08:30)
[2023-03-09] MEDS ORDERED: Aspirin 81 mg Enteric Coated Tablet PO SCH (09:00)
[2023-03-09] MEDS: Senokot S 8.6-50 MG TAB PO SCH ×2 (09:28→20:29)
[2023-03-09] MEDS: Polyethylene Glycol 3350 17 GM Packet PO SCH (09:28)
[2023-03-09] MEDS: Spironolactone 25 MG TAB PO SCH (09:28)
[2023-03-09] MEDS: Carvedilol 6.25 MG TAB PO SCH ×2 (09:29→17:43)
[2023-03-09] MEDS: Famotidine/PF 20 mg/2ml Vial SLOW IVP SCH ×2 (09:29→20:29)
[2023-03-09] MEDS: Insulin Glargine 30 UNITS/0.3 ML VIAL SC SCH ×2 (09:32→20:30)
[2023-03-09] MEDS: Ipratropium/Albuterol 3 ML NEB NEB SCH ×2 (11:15→19:39)
[2023-03-09] MEDS: Sacubitril 49 MG/Valsartan 51 MG TABLET PO SCH (20:29)
[2023-03-09] MEDS: Atorvastatin Calcium 40 MG TAB PO SCH (20:29)
[2023-03-09] MEDS ORDERED: CEFAZOLIN 2 GM in Sodium Chloride 0.9% 100 ML IVPB SCH (20:45)
[2023-03-10] MEDS: Acetaminophen 500 MG TAB PO SCH ×4 (05:54→23:10)
[2023-03-10] MEDS: traMADol HCl 50 MG TAB PO SCH (05:54)
[2023-03-10] MEDS: Ipratropium/Albuterol 3 ML NEB NEB SCH ×3 (06:55→19:28)
[2023-03-10] MEDS ORDERED: fentaNYL 50 mcg/mL 1 mL Vial ONE (07:01)
[2023-03-10] MEDS ORDERED: Phenylephrine 10 MG/ML VIAL ONE (07:02)
[2023-03-10] MEDS ORDERED: Midazolam HCl 2 mg/2 ml Vial ONE (07:02)
[2023-03-10] MEDS ORDERED: Vasopressin 20 UNITS/ML VIAL ONE (07:12)
[2023-03-10] MEDS ORDERED: Norepinephrine 4 MG/4 ML VIAL ONE (07:12)
[2023-03-10] MEDS ORDERED: Bupivacaine PF 0.5% 30 ML VIAL ONE (07:13)
[2023-03-10] MEDS ORDERED: CEFAZOLIN 2 GM VIAL ONE (07:18)
[2023-03-10] MEDS ORDERED: Propofol 1,000 MG/100 ML VIAL IV ONE (07:18)
[2023-03-10] MEDS ORDERED: Sodium Chloride 0.9% 100 ML ONE (07:18)
[2023-03-10] MEDS ORDERED: Lactated Ringer's 500 ML IV SCH (14:30)
[2023-03-10] MEDS: Carvedilol 6.25 MG TAB PO SCH ×2 (15:44→15:45)
[2023-03-10] MEDS: CEFAZOLIN 2 GM in Sodium Chloride 0.9% 100 ML IVPB SCH ×2 (15:44→21:58)
[2023-03-10] MEDS: traMADol HCl 50 MG TAB PO PRN (15:47)
[2023-03-10] MEDS: Morphine 2 MG/ML VIAL SLOW IVP PRN ×2 (17:49→21:56)
[2023-03-10] MEDS: Sertraline 100 MG TAB PO SCH (17:56)
[2023-03-10] MEDS: Senokot S 8.6-50 MG TAB PO SCH ×2 (17:56→20:44)
[2023-03-10] MEDS: Sacubitril 49 MG/Valsartan 51 MG TABLET PO SCH ×2 (18:00→20:43)
[2023-03-10] MEDS: Insulin Glargine 30 UNITS/0.3 ML VIAL SC SCH ×2 (18:01→20:51)
[2023-03-10] MEDS: Spironolactone 25 MG TAB PO SCH (18:02)
[2023-03-10] MEDS: Polyethylene Glycol 3350 17 GM Packet PO SCH (18:02)
[2023-03-10] MEDS: Famotidine/PF 20 mg/2ml Vial SLOW IVP SCH ×2 (18:02→20:45)
[2023-03-10] MEDS: HumaLOG 300 UNITS/3 ML VIAL SC PRN ×2 (18:05→20:55)
[2023-03-10] MEDS: Aspirin 81 mg Enteric Coated Tablet PO SCH (18:06)
[2023-03-10] MEDS: Atorvastatin Calcium 40 MG TAB PO SCH (20:42)
[2023-03-11 05:37] LABS: #Eosinphils 0.7 thou/uL (0.0-0.7); #Monocytes 1.1 thou/uL (0.11-0.59); #Neutrophils 7.5 thou/uL (1.40-6.50); %Basophils 0.3 % (0.0-1.0); %Eosinophils 7.1 % (0.0-10.0); %Lymphocytes 6.9 % (21.0-51.0); %Monocytes 10.7 % (0.0-10.0); %Neutrophils 74.3 % (42.0-75.0); Hematocrit 28.4 % (42.0-52.0); Hemoglobin 9.6 g/dL (14.0-18.0); Mean Corpuscular HGB CONC 33.8 g/dL (32.0-36.0); Mean Corpuscular Hemoglobin 31.8 pg (27.0-31.0); Mean Platelet Volume 8.3 fL (7.4-10.4); Platelet Count 267 10x3/uL (130-400); RBC Distribution Width 12.9 % (11.5-14.5); Red Blood Cell (RBC) Count 3.02 mill/uL (4.70-6.10); White Blood Cell (WBC) Count 10.1 10x3/uL (4.8-10.8)
[2023-03-11] MEDS: Acetaminophen 500 MG TAB PO SCH ×3 (05:55→20:51)
[2023-03-11 06:04] LABS: Anion Gap 9 mmol/L (10-20); BUN (Urea Nitrogen) 16 mg/dL (8.4-25.7); Calc. Creatinine Clearance 82 mL/min (70-130); Calcium 8.2 mg/dL (7.8-10.44); Carbon Dioxide 28 mmol/L (23-31); Chloride 95 mmol/L (98-107); Estimated GFR 94; Magnesium 1.5 mg/dL (1.6-2.6); Phosphorus 2.4 mg/dL (2.3-4.7); Potassium 4.4 mmol/L (3.5-5.1); Sodium 128 mmol/L (136-145)
[2023-03-11 06:10] LABS: Glucose 52 mg/dL (83-110)
[2023-03-11] MEDS: Ipratropium/Albuterol 3 ML NEB NEB SCH ×3 (06:31→18:53)
[2023-03-11] MEDS: Sacubitril 49 MG/Valsartan 51 MG TABLET PO SCH ×2 (08:46→20:43)
[2023-03-11] MEDS: Sertraline 100 MG TAB PO SCH (08:46)
[2023-03-11] MEDS: Senokot S 8.6-50 MG TAB PO SCH ×2 (08:46→20:51)
[2023-03-11] MEDS: Aspirin 81 mg Enteric Coated Tablet PO SCH (08:47)
[2023-03-11] MEDS: Spironolactone 25 MG TAB PO SCH (08:47)
[2023-03-11] MEDS: Carvedilol 6.25 MG TAB PO SCH ×2 (08:47→17:26)
[2023-03-11] MEDS: Famotidine/PF 20 mg/2ml Vial SLOW IVP SCH ×2 (08:48→20:44)
[2023-03-11] MEDS: traMADol HCl 50 MG TAB PO PRN ×2 (08:48→17:53)
[2023-03-11] MEDS: Insulin Glargine 30 UNITS/0.3 ML VIAL SC SCH ×2 (08:48→20:44)
[2023-03-11] MEDS: Polyethylene Glycol 3350 17 GM Packet PO SCH (08:48)
[2023-03-11] MEDS ORDERED: Magnesium Sulfate In Water 4 GM in Premix 1 BAG IVPB SCH (11:00)
[2023-03-11] MEDS: Ferrous Sulfate 325 MG TAB PO SCH (17:52)
[2023-03-11] MEDS: HumaLOG 300 UNITS/3 ML VIAL SC PRN (17:55)
[2023-03-11] MEDS: Ascorbic Acid 500 mg Chewable Tablet PO SCH (20:43)
[2023-03-11] MEDS: Atorvastatin Calcium 40 MG TAB PO SCH (20:44)
[2023-03-12] MEDS: Acetaminophen 500 MG TAB PO SCH ×5 (00:05→23:31)
[2023-03-12] MEDS: Ipratropium/Albuterol 3 ML NEB NEB SCH ×2 (06:20→13:24)
[2023-03-12 07:10] LABS: Anion Gap 11 mmol/L (10-20); BUN (Urea Nitrogen) 15 mg/dL (8.4-25.7); Calc. Creatinine Clearance 78 mL/min (70-130); Calcium 8.2 mg/dL (7.8-10.44); Carbon Dioxide 28 mmol/L (23-31); Chloride 95 mmol/L (98-107); Estimated GFR 92; Glucose 69 mg/dL (83-110); Magnesium 2.1 mg/dL (1.6-2.6); Phosphorus 2.5 mg/dL (2.3-4.7); Potassium 4.4 mmol/L (3.5-5.1); Sodium 130 mmol/L (136-145)
[2023-03-12 07:32] LABS: #Eosinphils 0.6 thou/uL (0.0-0.7); #Monocytes 0.7 thou/uL (0.11-0.59); #Neutrophils 5.1 thou/uL (1.40-6.50); %Basophils 0.1 % (0.0-1.0); %Eosinophils 8.5 % (0.0-10.0); %Lymphocytes 7.7 % (21.0-51.0); %Monocytes 9.9 % (0.0-10.0); %Neutrophils 72.9 % (42.0-75.0); Hematocrit 29.9 % (42.0-52.0); Hemoglobin 9.9 g/dL (14.0-18.0); Mean Corpuscular HGB CONC 33.1 g/dL (32.0-36.0); Mean Corpuscular Hemoglobin 32.1 pg (27.0-31.0); Mean Corpuscular Volume 97.1 fl (78.0-98.0); Mean Platelet Volume 8.4 fL (7.4-10.4); Platelet Count 271 10x3/uL (130-400); RBC Distribution Width 12.9 % (11.5-14.5); Red Blood Cell (RBC) Count 3.08 mill/uL (4.70-6.10)
[2023-03-12] MEDS: Sertraline 100 MG TAB PO SCH (08:26)
[2023-03-12] MEDS: Aspirin 81 mg Enteric Coated Tablet PO SCH ×2 (08:27→20:50)
[2023-03-12] MEDS: Sacubitril 49 MG/Valsartan 51 MG TABLET PO SCH ×2 (08:27→20:50)
[2023-03-12] MEDS: Ferrous Sulfate 325 MG TAB PO SCH ×2 (08:27→17:35)
[2023-03-12] MEDS: Spironolactone 25 MG TAB PO SCH (08:27)
[2023-03-12] MEDS: Ascorbic Acid 500 mg Chewable Tablet PO SCH ×2 (08:27→20:49)
[2023-03-12] MEDS: Carvedilol 6.25 MG TAB PO SCH ×2 (08:30→17:39)
[2023-03-12] MEDS: Insulin Glargine 30 UNITS/0.3 ML VIAL SC SCH ×2 (08:31→23:27)
[2023-03-12] MEDS: Famotidine/PF 20 mg/2ml Vial SLOW IVP SCH ×2 (08:31→20:50)
[2023-03-12] MEDS: Polyethylene Glycol 3350 17 GM Packet PO SCH (08:32)
[2023-03-12] MEDS: Linaclotide [Linzess] 145 MCG Capsule PO SCH (08:32)
[2023-03-12] MEDS: Senokot S 8.6-50 MG TAB PO SCH ×2 (08:32→20:45)
[2023-03-12] MEDS: HumaLOG 300 UNITS/3 ML VIAL SC PRN ×2 (11:21→17:36)
[2023-03-12] MEDS: Atorvastatin Calcium 40 MG TAB PO SCH (20:50)
[2023-03-13] MEDS: Acetaminophen 500 MG TAB PO SCH ×4 (05:23→23:32)
[2023-03-13] MEDS: HumaLOG 300 UNITS/3 ML VIAL SC PRN (06:13)
[2023-03-13] MEDS: Senokot S 8.6-50 MG TAB PO SCH ×2 (09:22→20:59)
[2023-03-13] MEDS: Aspirin 81 mg Enteric Coated Tablet PO SCH ×2 (09:22→20:57)
[2023-03-13] MEDS: Sertraline 100 MG TAB PO SCH (09:22)
[2023-03-13] MEDS: Ferrous Sulfate 325 MG TAB PO SCH ×2 (09:23→17:16)
[2023-03-13] MEDS: Sacubitril 49 MG/Valsartan 51 MG TABLET PO SCH ×2 (09:23→20:58)
[2023-03-13] MEDS: Empagliflozin 10 MG TAB PO SCH (09:23)
[2023-03-13] MEDS: Carvedilol 6.25 MG TAB PO SCH ×2 (09:23→17:16)
[2023-03-13] MEDS: Ascorbic Acid 500 mg Chewable Tablet PO SCH ×2 (09:23→20:59)
[2023-03-13] MEDS: Insulin Glargine 30 UNITS/0.3 ML VIAL SC SCH ×2 (09:24→21:01)
[2023-03-13] MEDS: Spironolactone 25 MG TAB PO SCH (09:24)
[2023-03-13] MEDS: Linaclotide [Linzess] 145 MCG Capsule PO SCH (09:27)
[2023-03-13] MEDS: Polyethylene Glycol 3350 17 GM Packet PO SCH (11:49)
[2023-03-13] MEDS: Famotidine/PF 20 mg/2ml Vial SLOW IVP SCH ×2 (15:22→20:59)
[2023-03-13] MEDS: Atorvastatin Calcium 40 MG TAB PO SCH (20:58)
[2023-03-14] MEDS: Acetaminophen 500 MG TAB PO SCH ×2 (06:20→11:56)
[2023-03-14] MEDS: Aspirin 81 mg Enteric Coated Tablet PO SCH (08:43)
[2023-03-14] MEDS: Senokot S 8.6-50 MG TAB PO SCH (08:43)
[2023-03-14] MEDS: Carvedilol 6.25 MG TAB PO SCH (08:43)
[2023-03-14] MEDS: Ferrous Sulfate 325 MG TAB PO SCH (08:43)
[2023-03-14] MEDS: Empagliflozin 10 MG TAB PO SCH (08:43)
[2023-03-14] MEDS: Ascorbic Acid 500 mg Chewable Tablet PO SCH (08:43)
[2023-03-14] MEDS: Sacubitril 49 MG/Valsartan 51 MG TABLET PO SCH (08:43)
[2023-03-14] MEDS: Sertraline 100 MG TAB PO SCH (08:43)
[2023-03-14] MEDS: Spironolactone 25 MG TAB PO SCH (08:43)
[2023-03-14] MEDS: Insulin Glargine 30 UNITS/0.3 ML VIAL SC SCH (08:44)
[2023-03-14] MEDS: Linaclotide [Linzess] 145 MCG Capsule PO SCH (11:44)
[2023-03-14] MEDS: Famotidine/PF 20 mg/2ml Vial SLOW IVP SCH (11:44)
[2023-03-14] MEDS: Polyethylene Glycol 3350 17 GM Packet PO SCH (11:45)
[2023-03-14] MEDS: HumaLOG 300 UNITS/3 ML VIAL SC PRN (11:57)
[2023-03-14 12:10] VITALS: BP 117/64; TEMP 97.2
== END 2023-03-14 17:57 | disposition home health service (06) | DRG 522 ==
LOC: ERS 11:19 → SJJU 13:24
PROVIDERS: ADMIT Surgery; ATTEND Surgery
PROC: 0SRR0JA Replacement of Right Hip Joint, Femoral Surface with Synthetic Substitute, Uncemented, Open Approach (ICD-10-PCS; principal; 2023-03-10)
DX: S72.001A Fracture of unspecified part of neck of right femur, initial encounter for closed fracture (principal); E44.0 Moderate protein-calorie malnutrition; E87.1 Hypo-osmolality and hyponatremia; I50.22 Chronic systolic (congestive) heart failure; W18.30XA Fall on same level, unspecified, initial encounter; Z79.82 Long term (current) use of aspirin; Z79.899 Other long term (current) drug therapy; J44.9 Chronic obstructive pulmonary disease, unspecified; E11.9 Type 2 diabetes mellitus without complications; I25.10 Atherosclerotic heart disease of native coronary artery without angina pectoris; Z90.89 Acquired absence of other organs; Z98.890 Other specified postprocedural states; Z87.891 Personal history of nicotine dependence; Z82.49 Family history of ischemic heart disease and other diseases of the circulatory system; I11.0 Hypertensive heart disease with heart failure; I25.5 Ischemic cardiomyopathy; Z79.84 Long term (current) use of oral hypoglycemic drugs
CPT/HCPCS: 36415; 36416; 71045; 72170; 80048; 80053; 83735; 84100; 84484; 85025; 85610; 85730; 93005; 94640; C1713; C1776; J1642; J1815; J2250; J2272; J2370; J2704; J3010; J3475; J3490; J7050; J7120; J7620; S0020; S0028

== ENCOUNTER 2023-03-19 02:53 | Inpatient (IN) | payer OTHER ==
[2023-03-19] MEDS ORDERED: Ketorolac Tromethamine 30 MG/ML VIAL ONE (03:27)
[2023-03-19] MEDS ORDERED: LORazepam 2 MG/ML SYR.(CARPUJECT) ONE (04:00)
[2023-03-19 04:30] LABS: #Eosinphils 0.4 thou/uL (0.0-0.7); #Monocytes 0.7 thou/uL (0.11-0.59); %Basophils 0.2 % (0.0-1.0); %Eosinophils 3.4 % (0.0-10.0); %Lymphocytes 4.3 % (21.0-51.0); %Monocytes 5.7 % (0.0-10.0); %Neutrophils 85.6 % (42.0-75.0); Hematocrit 30.5 % (42.0-52.0); Hemoglobin 10.3 g/dL (14.0-18.0); Mean Corpuscular HGB CONC 33.8 g/dL (32.0-36.0); Mean Corpuscular Hemoglobin 32.4 pg (27.0-31.0); Mean Corpuscular Volume 95.9 fl (78.0-98.0); Mean Platelet Volume 7.9 fL (7.4-10.4); Platelet Count 304 10x3/uL (130-400); RBC Distribution Width 12.6 % (11.5-14.5); Red Blood Cell (RBC) Count 3.18 mill/uL (4.70-6.10); White Blood Cell (WBC) Count 11.6 10x3/uL (4.8-10.8)
[2023-03-19 04:44] LABS: INR-International Normal Ratio 1.1; PTT 32.1 sec (22.9-36.1); Prothrombin Time 14.3 sec (12.0-14.7)
[2023-03-19 04:58] LABS: ALT (SGPT) 13 U/L (8-55); AST (SGOT) 19 U/L (5-34); Albumin 3.2 g/dL (3.4-4.8); Alkaline Phosphatase 94 U/L (40-110); Anion Gap 13 mmol/L (10-20); BUN (Urea Nitrogen) 17 mg/dL (8.4-25.7); Bilirubin, Total 0.7 mg/dL (0.2-1.2); Calc. Creatinine Clearance 0 mL/min (70-130); Carbon Dioxide 28 mmol/L (23-31); Chloride 92 mmol/L (98-107); Estimated GFR 90; Globulin 2.5 g/dL (2.4-3.5); Glucose 145 mg/dL (83-110); Protein, Total 5.7 g/dL (5.8-8.1); Sodium 129 mmol/L (136-145)
[2023-03-19] MEDS ORDERED: Acetaminophen 650 MG Suppository PR PRN (06:35)
[2023-03-19] MEDS ORDERED: Acetaminophen 325 MG TAB PO PRN (06:35)
[2023-03-19] MEDS ORDERED: Ondansetron PF 4 MG/2 ML Vial IVP PRN (06:35)
[2023-03-19] MEDS ORDERED: Ondansetron ODT 4 MG TAB PO PRN (06:35)
[2023-03-19] MEDS ORDERED: Glucagon 1 MG/ML KIT IM PRN (06:54)
[2023-03-19] MEDS ORDERED: Dextrose 50% Abboject 50 ML SYRINGE SLOW IVP PRN (06:54)
[2023-03-19] MEDS ORDERED: HumaLOG 300 UNITS/3 ML VIAL SC PRN (06:54)
[2023-03-19] MEDS ORDERED: Dextrose 5% in Water 1,000 ML IV PRN (06:54)
[2023-03-19 07:25] VITALS: BMI 21.4
[2023-03-19] MEDS ORDERED: fentaNYL 50 mcg/mL 1 mL Vial ONE (12:04)
[2023-03-19] MEDS ORDERED: Ketamine In 0.9 % NaCl 50 MG/5 ML SYRINGE ONE (12:05)
[2023-03-19] MEDS ORDERED: Midazolam HCl 2 mg/2 ml Vial ONE (12:05)
[2023-03-19] MEDS ORDERED: PROPOFOL 200 MG/20 ML VIAL ONE (13:06)
[2023-03-19] MEDS ORDERED: Esmolol 100 MG/10 ML VIAL ONE (13:06)
[2023-03-19] MEDS ORDERED: Ondansetron HCl/PF 4 MG/2 ML Vial IVP PRN (13:43)
[2023-03-19] MEDS ORDERED: Senokot 8.6 MG TAB PO PRN (16:00)
[2023-03-20] MEDS ORDERED: Ipratropium/Albuterol 3 ML NEB NEB PRN (07:26)
[2023-03-20] MEDS ORDERED: metFORMIN 500 MG TAB PO SCH (08:00)
[2023-03-20] MEDS: Sacubitril 49 MG/Valsartan 51 MG TABLET PO SCH ×2 (08:31→19:47)
[2023-03-20] MEDS: Carvedilol 6.25 MG TAB PO SCH ×2 (08:31→16:45)
[2023-03-20] MEDS: Magnesium Oxide 400 MG TAB PO SCH (08:32)
[2023-03-20] MEDS: Furosemide 20 MG TAB PO SCH (08:32)
[2023-03-20] MEDS: metFORMIN 500 MG TAB PO SCH (08:32)
[2023-03-20] MEDS: Ferrous Sulfate 325 MG TAB PO SCH (08:32)
[2023-03-20] MEDS: Empagliflozin 10 MG TAB PO SCH (08:32)
[2023-03-20] MEDS: Sertraline 100 MG TAB PO SCH (08:33)
[2023-03-20] MEDS: Aspirin 81 mg Enteric Coated Tablet PO SCH (08:33)
[2023-03-20] MEDS: Spironolactone 25 MG TAB PO SCH (08:33)
[2023-03-20] MEDS: Ascorbic Acid 500 mg Chewable Tablet PO SCH ×2 (08:33→19:47)
[2023-03-20] MEDS: Polyethylene Glycol 3350 17 GM Packet PER TUBE SCH (08:33)
[2023-03-20] MEDS ORDERED: Non-Formulary Item 1 EACH (Sertraline Hcl [Sertraline Hcl] 50 MG Tablet) PO SCH (09:00)
[2023-03-20] MEDS ORDERED: Non-Formulary Item 1 EACH (Linaclotide [Linzess] 145 MCG Capsule) PO SCH (09:00)
[2023-03-20] MEDS ORDERED: MAGNESIUM OXIDE 200 MG PO SCH (09:00)
[2023-03-20] MEDS ORDERED: Non-Formulary Item 1 EACH (Sacubitril/Valsartan [Entresto 97 Mg-103 Mg Tablet] 1 EACH Tab PO SCH (09:00)
[2023-03-20 09:09] LABS: #Eosinphils 0.4 thou/uL (0.0-0.7); #Monocytes 0.6 thou/uL (0.11-0.59); #Neutrophils 4.6 thou/uL (1.40-6.50); %Basophils 0.2 % (0.0-1.0); %Eosinophils 6.4 % (0.0-10.0); %Neutrophils 75.4 % (42.0-75.0); Hematocrit 23.9 % (42.0-52.0); Hemoglobin 8.1 g/dL (14.0-18.0); Mean Corpuscular HGB CONC 33.9 g/dL (32.0-36.0); Mean Corpuscular Hemoglobin 32.1 pg (27.0-31.0); Mean Corpuscular Volume 94.8 fl (78.0-98.0); Mean Platelet Volume 8.1 fL (7.4-10.4); Platelet Count 273 10x3/uL (130-400); RBC Distribution Width 12.8 % (11.5-14.5); Red Blood Cell (RBC) Count 2.52 mill/uL (4.70-6.10); White Blood Cell (WBC) Count 6.1 10x3/uL (4.8-10.8)
[2023-03-20 09:40] LABS: Anion Gap 11 mmol/L (10-20); BUN (Urea Nitrogen) 18 mg/dL (8.4-25.7); Calc. Creatinine Clearance 90 mL/min (70-130); Calcium 8.2 mg/dL (7.8-10.44); Carbon Dioxide 29 mmol/L (23-31); Chloride 92 mmol/L (98-107); Estimated GFR 94; Glucose 150 mg/dL (83-110); Potassium 3.6 mmol/L (3.5-5.1); Sodium 128 mmol/L (136-145)
[2023-03-20] MEDS: HumaLOG 300 UNITS/3 ML VIAL SC PRN ×2 (12:24→17:25)
[2023-03-20] MEDS: Atorvastatin Calcium 40 MG TAB PO SCH (19:47)
[2023-03-21] MEDS: Sacubitril 49 MG/Valsartan 51 MG TABLET PO SCH ×2 (08:21→20:44)
[2023-03-21] MEDS: Magnesium Oxide 400 MG TAB PO SCH (08:22)
[2023-03-21] MEDS: Furosemide 20 MG TAB PO SCH (08:22)
[2023-03-21] MEDS: Aspirin 81 mg Enteric Coated Tablet PO SCH (08:22)
[2023-03-21] MEDS: Empagliflozin 10 MG TAB PO SCH (08:22)
[2023-03-21] MEDS: Ferrous Sulfate 325 MG TAB PO SCH (08:22)
[2023-03-21] MEDS: metFORMIN 500 MG TAB PO SCH (08:23)
[2023-03-21] MEDS: Carvedilol 6.25 MG TAB PO SCH ×2 (08:23→17:49)
[2023-03-21] MEDS: Ascorbic Acid 500 mg Chewable Tablet PO SCH ×2 (08:23→20:44)
[2023-03-21] MEDS: Spironolactone 25 MG TAB PO SCH (08:23)
[2023-03-21] MEDS: Sertraline 100 MG TAB PO SCH (08:23)
[2023-03-21] MEDS: Polyethylene Glycol 3350 17 GM Packet PER TUBE SCH (08:24)
[2023-03-21] MEDS: traMADol HCl 50 MG TAB PO PRN ×2 (15:12→20:42)
[2023-03-21] MEDS: HumaLOG 300 UNITS/3 ML VIAL SC PRN (17:52)
[2023-03-21] MEDS: Atorvastatin Calcium 40 MG TAB PO SCH (20:43)
[2023-03-22 05:16] LABS: #Eosinphils 0.5 thou/uL (0.0-0.7); #Monocytes 0.5 thou/uL (0.11-0.59); #Neutrophils 3.6 thou/uL (1.40-6.50); %Basophils 0.2 % (0.0-1.0); %Eosinophils 9.6 % (0.0-10.0); %Lymphocytes 13.8 % (21.0-51.0); %Monocytes 9.6 % (0.0-10.0); %Neutrophils 66.2 % (42.0-75.0); Hematocrit 24.1 % (42.0-52.0); Hemoglobin 8.4 g/dL (14.0-18.0); Mean Corpuscular HGB CONC 34.9 g/dL (32.0-36.0); Mean Corpuscular Hemoglobin 33.7 pg (27.0-31.0); Mean Corpuscular Volume 96.8 fl (78.0-98.0); Mean Platelet Volume 7.9 fL (7.4-10.4); Platelet Count 271 10x3/uL (130-400); Red Blood Cell (RBC) Count 2.49 mill/uL (4.70-6.10); White Blood Cell (WBC) Count 5.4 10x3/uL (4.8-10.8)
[2023-03-22 05:41] LABS: Anion Gap 7 mmol/L (10-20); BUN (Urea Nitrogen) 13 mg/dL (8.4-25.7); Calc. Creatinine Clearance 91 mL/min (70-130); Calcium 7.9 mg/dL (7.8-10.44); Carbon Dioxide 32 mmol/L (23-31); Chloride 92 mmol/L (98-107); Estimated GFR 94; Glucose 113 mg/dL (83-110); Potassium 3.8 mmol/L (3.5-5.1); Sodium 127 mmol/L (136-145)
[2023-03-22] MEDS ORDERED: LINZESS 72MCG PO SCH (07:00)
[2023-03-22] MEDS: Ascorbic Acid 500 mg Chewable Tablet PO SCH (09:51)
[2023-03-22] MEDS: Aspirin 81 mg Enteric Coated Tablet PO SCH (09:51)
[2023-03-22] MEDS: Carvedilol 6.25 MG TAB PO SCH ×2 (09:51→17:17)
[2023-03-22] MEDS: Sacubitril 49 MG/Valsartan 51 MG TABLET PO SCH (09:52)
[2023-03-22] MEDS: Spironolactone 25 MG TAB PO SCH (09:52)
[2023-03-22] MEDS: Polyethylene Glycol 3350 17 GM Packet PER TUBE SCH ×2 (09:52→09:57)
[2023-03-22] MEDS: Sertraline 100 MG TAB PO SCH (09:53)
[2023-03-22] MEDS: Ferrous Sulfate 325 MG TAB PO SCH (09:53)
[2023-03-22] MEDS: Magnesium Oxide 400 MG TAB PO SCH (09:53)
[2023-03-22] MEDS: metFORMIN 500 MG TAB PO SCH (09:53)
[2023-03-22] MEDS: Empagliflozin 10 MG TAB PO SCH (09:54)
[2023-03-22] MEDS: Furosemide 20 MG TAB PO SCH (09:54)
[2023-03-22 15:48] VITALS: TEMP 97.1
[2023-03-22 17:18] VITALS: BP 105/63
== END 2023-03-22 19:04 | disposition swing bed (61) | DRG 559 ==
LOC: ERS 02:53 → ERHOLD 06:08 → SURG A 16:11
PROVIDERS: ADMIT Student in an Organized Health Care Education/Training Program; ATTEND Internal Medicine
PROC: 0SS9XZZ Reposition Right Hip Joint, External Approach (ICD-10-PCS; principal; 2023-03-19)
DX: T84.020A Dislocation of internal right hip prosthesis, initial encounter (principal); S32.421A Displaced fracture of posterior wall of right acetabulum, initial encounter for closed fracture; S32.492A Other specified fracture of left acetabulum, initial encounter for closed fracture; S32.592A Other specified fracture of left pubis, initial encounter for closed fracture; E87.1 Hypo-osmolality and hyponatremia; I50.22 Chronic systolic (congestive) heart failure; D64.9 Anemia, unspecified; W19.XXXA Unspecified fall, initial encounter; I25.10 Atherosclerotic heart disease of native coronary artery without angina pectoris; I25.5 Ischemic cardiomyopathy; E78.5 Hyperlipidemia, unspecified; E11.9 Type 2 diabetes mellitus without complications; I11.0 Hypertensive heart disease with heart failure; J45.909 Unspecified asthma, uncomplicated; Z96.641 Presence of right artificial hip joint; Z98.890 Other specified postprocedural states; Z79.84 Long term (current) use of oral hypoglycemic drugs; Z79.82 Long term (current) use of aspirin; Z79.899 Other long term (current) drug therapy; Z90.89 Acquired absence of other organs
CPT/HCPCS: 36415; 36416; 71045; 72170; 72192; 80048; 80053; 85025; 85610; 85730; 93005; 94799; 96374; 96375; J1650; J1815; J1885; J2060; J2250; J2704; J3010; J3490

== ENCOUNTER 2023-05-24 09:28 | Outpatient (CLI) | payer MEDICARE, OTHER | END 2023-05-24 09:29 | disposition home or self-care (01) | LOC: RAD 09:28 | PROVIDERS: ATTEND Internal Medicine Critical Care Medicine | DX: R06.00 Dyspnea, unspecified (principal) | CPT/HCPCS: 71046 ==

== ENCOUNTER 2023-06-21 09:00 | Inpatient (IN) | payer MEDICARE ==
[2023-06-21 11:36] LABS: Anion Gap 14 mmol/L (10-20); BUN (Urea Nitrogen) 15 mg/dL (8.4-25.7); Calc. Creatinine Clearance 0 mL/min (70-130); Calcium 8.9 mg/dL (7.8-10.44); Carbon Dioxide 29 mmol/L (23-31); Chloride 94 mmol/L (98-107); Estimated GFR 89; Glucose 115 mg/dL (83-110); Potassium 4.5 mmol/L (3.5-5.1); Sodium 132 mmol/L (136-145)
[2023-06-22] MEDS ORDERED: Dexamethasone 4 mg/ml Vial ONE (06:14)
[2023-06-22] MEDS ORDERED: PHENYLEPHRINE-NS 100 MCG/ML 10 ML SYRINGE ONE ×3 (06:14→07:00)
[2023-06-22] MEDS ORDERED: EPINEPHrine 1 MG/ML VIAL ONE (06:14)
[2023-06-22] MEDS ORDERED: Albumin 5% 500 ML ONE (06:15)
[2023-06-22] MEDS ORDERED: Bupivacaine PF 0.5% 30 ML VIAL ONE (06:15)
[2023-06-22] MEDS ORDERED: Heparin 10,000 UNITS/1 ML VIAL 30,000 UNITS in Sodium Chloride 0.9% 1,000 ML FS SCH (06:30)
[2023-06-22] MEDS ORDERED: Lidocaine 2% PF 5 ML VIAL ONE (06:50)
[2023-06-22] MEDS ORDERED: fentaNYL PF 100 MCG/2 ML SYRINGE ONE (06:50)
[2023-06-22] MEDS ORDERED: Vecuronium 10 MG VIAL ONE (06:50)
[2023-06-22] MEDS ORDERED: PROPOFOL 20 ML ONE (06:51)
[2023-06-22] MEDS ORDERED: Midazolam HCl 2 mg/2 ml Vial ONE (06:51)
[2023-06-22] MEDS ORDERED: Milrinone 10 MG/10 ML VIAL ONE (07:00)
[2023-06-22] MEDS ORDERED: Sodium Chloride 0.9% 100 ML ONE (07:21)
[2023-06-22] MEDS ORDERED: CEFAZOLIN 2 GM VIAL ONE (07:21)
[2023-06-22] MEDS ORDERED: Magnesium 5 GM/10 ML VIAL ONE (07:30)
[2023-06-22] MEDS ORDERED: Sodium Bicarb 50 mEq/50 ML VIAL ONE (07:30)
[2023-06-22] MEDS ORDERED: Protamine Sulfate 250 MG/25 ML VIAL ONE (07:30)
[2023-06-22] MEDS ORDERED: Heparin 30,000 units/30 ml VIAL ONE (07:30)
[2023-06-22] MEDS ORDERED: Papaverine 60 MG/2 ML VIAL ONE (07:30)
[2023-06-22] MEDS ORDERED: Thrombin 5000 UNITS/5 ML VIAL ONE (07:30)
[2023-06-22] MEDS ORDERED: Mannitol 12.5 GM/50 ML ONE (07:30)
[2023-06-22] MEDS ORDERED: Potassium Chloride 60 mEq (30 mL) VIAL ONE (07:30)
[2023-06-22] MEDS ORDERED: Cardioplegic Soln 1,000 ML BAG ONE (07:30)
[2023-06-22] MEDS ORDERED: Vancomycin 1 GM VIAL ONE (07:30)
[2023-06-22] MEDS ORDERED: Calcium Chloride 1 GM/10 ML Abboject SYRINGE ONE (07:30)
[2023-06-22] MEDS ORDERED: Nitroglycerin 50 MG/250 ML BOT ONE (07:30)
[2023-06-22] MEDS ORDERED: Lidocaine 2% PF 100 mg/5 ml Syringe ONE (07:30)
[2023-06-22] MEDS ORDERED: Heparin 5,000 UNITS/ML VIAL ONE (07:30)
[2023-06-22] MEDS ORDERED: Aminocaproic Acid 5 GM/20 ML VIAL ONE (07:30)
[2023-06-22] MEDS ORDERED: ePHEDrine Sulfate 50 MG/10 ML VIAL ONE (08:13)
[2023-06-22] MEDS ORDERED: Insulin Regular 300 UNITS/3 ML VIAL ONE (09:01)
[2023-06-22] MEDS ORDERED: Ondansetron PF 4 MG/2 ML Vial ONE (10:31)
[2023-06-22] MEDS ORDERED: SUGAMMADEX SODIUM 200 MG/2 ML VIAL ONE (10:31)
[2023-06-22 10:56] LABS: Actual Bicarbonate (HCO3a) 23.7 mEq/L (22-28); Base Excess (BEa) -3.6 mEq/L (-2.0 to +3.0); CO2 Tension 53.3 mmHg (35.0-45.0); Calcium, Ionized (arterial) 1.15 mmol/L (1.12-1.30); Carboxyhemoglobin (COHb) 0.4 gm% (0.0-3.0); Hematocrit-ABG 32 % (42.0-52.0); Hemoglobin (Hb) 10.9 g/dL (14.0-18.0); O2 Tension (PaO2), arterial 327.8 mmHg (> 70.0); Potassium - ABG Lab 4.21 mmol/L (3.70-5.30); pH, Arterial 7.266 (7.35-7.45)
[2023-06-22 10:58] LABS: ALV-art Gradient 33.375 mmHg (0-20); Puncture Site Arterial Line
[2023-06-22] MEDS ORDERED: Bisacodyl 5 MG TAB PO PRN (10:59)
[2023-06-22] MEDS ORDERED: Morphine 2 MG/ML VIAL SLOW IVP PRN (10:59)
[2023-06-22] MEDS ORDERED: Bisacodyl 10 MG SUPP PR PRN (10:59)
[2023-06-22] MEDS ORDERED: Ipratropium/Albuterol 3 ML NEB NEB PRN (10:59)
[2023-06-22] MEDS ORDERED: fentaNYL 50 mcg/mL 1 mL Vial SLOW IVP PRN (10:59)
[2023-06-22] MEDS ORDERED: Nitroglycerin 50 MG/250 ML BOT 250 ML IVPB PRN (10:59)
[2023-06-22] MEDS ORDERED: hydrALAZINE 20 MG/ML VIAL SLOW IVP PRN (10:59)
[2023-06-22] MEDS ORDERED: Hetastarch 6% 500 ML 500 ML IVPB PRN (10:59)
[2023-06-22] MEDS ORDERED: Albumin 5% 12.5 GM (250 mL) BOT IVPB PRN (10:59)
[2023-06-22] MEDS ORDERED: Mag-Al 1200 mg/1200 mg/30 ML UDCUP PO PRN (10:59)
[2023-06-22] MEDS ORDERED: Guaifenesin DM 100-10/5 ML UDCUP PO PRN (10:59)
[2023-06-22] MEDS ORDERED: NOREPINEPHRINE 8 MG/250 ML-D5W 250 ML IVPB PRN (10:59)
[2023-06-22] MEDS ORDERED: Ondansetron PF 4 MG/2 ML Vial IVP PRN (10:59)
[2023-06-22 11:03] LABS: #Eosinphils 1.4 thou/uL (0.0-0.7); #Monocytes 0.8 thou/uL (0.11-0.59); #Neutrophils 14.3 thou/uL (1.40-6.50); %Basophils 0.2 % (0.0-1.0); %Eosinophils 8.1 % (0.0-10.0); %Lymphocytes 4.8 % (21.0-51.0); %Monocytes 4.7 % (0.0-10.0); %Neutrophils 81.1 % (42.0-75.0); Hematocrit 29.3 % (42.0-52.0); Hemoglobin 10.1 g/dL (14.0-18.0); Mean Corpuscular HGB CONC 34.5 g/dL (32.0-36.0); Mean Corpuscular Hemoglobin 32.8 pg (27.0-31.0); Mean Corpuscular Volume 95.1 fl (78.0-98.0); Mean Platelet Volume 8.5 fL (7.4-10.4); Platelet Count 232 10x3/uL (130-400); RBC Distribution Width 13.2 % (11.5-14.5); Red Blood Cell (RBC) Count 3.08 mill/uL (4.70-6.10); White Blood Cell (WBC) Count 17.6 10x3/uL (4.8-10.8)
[2023-06-22] MEDS ORDERED: Glucagon 1 MG/ML KIT SC PRN (11:15)
[2023-06-22] MEDS ORDERED: HUMULIN R 100 UNITS in Sodium Chloride 0.9% 100 ML IVPB SCH (11:15)
[2023-06-22] MEDS ORDERED: Dextrose 50% Abboject 50 ML SYRINGE SLOW IVP PRN (11:15)
[2023-06-22] MEDS ORDERED: Insulin Regular 300 UNITS/3 ML VIAL SC PRN (11:15)
[2023-06-22] MEDS ORDERED: Dextrose 5% in Water 1,000 ML IV PRN (11:15)
[2023-06-22 11:19] LABS: INR-International Normal Ratio 1.5; Prothrombin Time 17.6 sec (12.0-14.7)
[2023-06-22 11:20] LABS: PTT 33.1 sec (22.9-36.1)
[2023-06-22] MEDS: Ketorolac Tromethamine 30 MG (1 mL) VIAL IVP SCH (11:31)
[2023-06-22] MEDS: D5 1/2 NS w/20 mEq KCL 1,000 ML IV SCH (11:33)
[2023-06-22] MEDS: Magnesium 2 GM/50 ML(in water) 2 GM in Premix 1 BAG IVPB SCH (11:33)
[2023-06-22 11:34] LABS: Anion Gap 7 mmol/L (10-20); BUN (Urea Nitrogen) 13 mg/dL (8.4-25.7); Calc. Creatinine Clearance 82 mL/min (70-130); Calcium 7.4 mg/dL (7.8-10.44); Carbon Dioxide 23 mmol/L (23-31); Chloride 105 mmol/L (98-107); Estimated GFR 98; Glucose 150 mg/dL (83-110); Potassium 4.3 mmol/L (3.5-5.1); Sodium 131 mmol/L (136-145)
[2023-06-22] MEDS: Post-Op Insulin Drip Protocol IVPB ONE (11:42)
[2023-06-22] MEDS: Albumin 5% 12.5 GM (250 mL) BOT IVPB PRN (12:01)
[2023-06-22 12:13] LABS: Actual Bicarbonate (HCO3a) 21.8 mEq/L (22-28); Base Excess (BEa) -5.3 mEq/L (-2.0 to +3.0); CO2 Tension 49.3 mmHg (35.0-45.0); Calcium, Ionized (arterial) 1.17 mmol/L (1.12-1.30); Carboxyhemoglobin (COHb) 0.6 gm% (0.0-3.0); Hematocrit-ABG 34 % (42.0-52.0); Hemoglobin (Hb) 11.7 g/dL (14.0-18.0); O2 Tension (PaO2), arterial 106.4 mmHg (> 70.0); Potassium - ABG Lab 4.15 mmol/L (3.70-5.30); pH, Arterial 7.263 (7.35-7.45)
[2023-06-22 12:14] LABS: ALV-art Gradient 45.875 mmHg (0-20); Puncture Site Arterial Line
[2023-06-22] MEDS: Ipratropium/Albuterol 3 ML NEB NEB SCH (13:00)
[2023-06-22 14:30] LABS: Actual Bicarbonate (HCO3a) 20.9 mEq/L (22-28); Base Excess (BEa) -5.4 mEq/L (-2.0 to +3.0); CO2 Tension 43.8 mmHg (35.0-45.0); Carboxyhemoglobin (COHb) 0.6 gm% (0.0-3.0); Hematocrit-ABG 32 % (42.0-52.0); O2 Tension (PaO2), arterial 79.8 mmHg (> 70.0); Potassium - ABG Lab 4.32 mmol/L (3.70-5.30); pH, Arterial 7.296 (7.35-7.45)
[2023-06-22 14:45] LABS: Puncture Site Arterial Line
[2023-06-22] MEDS: CEFAZOLIN 2 GM in Sodium Chloride 0.9% 100 ML IVPB SCH (14:47)
[2023-06-22] MEDS: traMADol HCl 50 MG TAB PO PRN (14:58)
[2023-06-22 16:02] LABS: Hematocrit 31.3 % (42.0-52.0); Hemoglobin 10.3 g/dL (14.0-18.0)
[2023-06-22 16:26] LABS: Potassium 4.1 mmol/L (3.5-5.1)
[2023-06-22] MEDS: Acetaminophen 325 MG TAB PO PRN (16:52)
[2023-06-22] MEDS: fentaNYL 50 mcg/mL 1 mL Vial SLOW IVP PRN (18:01)
[2023-06-22] MEDS: Mometasone 200 MCG/Formoterol 5 MCG 120 PUFF INHALER INH SCH (18:55)
[2023-06-22] MEDS: Atorvastatin Calcium 40 MG TAB PO SCH (21:36)
[2023-06-22] MEDS: Famotidine/PF 20 mg/2ml Vial SLOW IVP SCH (21:36)
[2023-06-23] MEDS: Sodium Chloride 0.9% 500 ML IV SCH (02:55)
[2023-06-23 05:16] LABS: #Eosinphils 0.1 thou/uL (0.0-0.7); #Monocytes 1.1 thou/uL (0.11-0.59); #Neutrophils 7.8 thou/uL (1.40-6.50); %Basophils 0.1 % (0.0-1.0); %Eosinophils 0.8 % (0.0-10.0); %Lymphocytes 6.4 % (21.0-51.0); %Neutrophils 81.1 % (42.0-75.0); Hematocrit 28.2 % (42.0-52.0); Hemoglobin 9.1 g/dL (14.0-18.0); Mean Corpuscular HGB CONC 32.3 g/dL (32.0-36.0); Mean Corpuscular Hemoglobin 32.2 pg (27.0-31.0); Mean Platelet Volume 8.5 fL (7.4-10.4); Platelet Count 178 10x3/uL (130-400); RBC Distribution Width 13.2 % (11.5-14.5); Red Blood Cell (RBC) Count 2.83 mill/uL (4.70-6.10); White Blood Cell (WBC) Count 9.6 10x3/uL (4.8-10.8)
[2023-06-23 05:20] LABS: Mean Corpuscular Volume 99.6 fl (78.0-98.0)
[2023-06-23 05:50] LABS: Anion Gap 8 mmol/L (10-20); BUN (Urea Nitrogen) 18 mg/dL (8.4-25.7); Calc. Creatinine Clearance 71 mL/min (70-130); Calcium 8.7 mg/dL (7.8-10.44); Carbon Dioxide 23 mmol/L (23-31); Chloride 104 mmol/L (98-107); Estimated GFR 93; Glucose 125 mg/dL (83-110); Sodium 131 mmol/L (136-145)
[2023-06-23] MEDS: Potassium Chloride 20 MEQ (100 mL) BAG IVPB PRN (06:24)
[2023-06-23] MEDS: Sertraline 100 MG TAB PO SCH (08:34)
[2023-06-23] MEDS: Aspirin 325 MG TAB PO SCH (08:34)
[2023-06-23] MEDS: Magnesium 2 GM/50 ML(in water) 2 GM in Premix 1 BAG IVPB SCH (08:34)
[2023-06-23] MEDS ORDERED: Aspirin 81 mg Enteric Coated Tablet PO SCH (09:00)
[2023-06-23] MEDS ORDERED: Insulin Glargine 30 UNITS/0.3 ML VIAL SC PRN (11:02)
[2023-06-23] MEDS: Ferrous Sulfate 325 MG TAB PO SCH (11:07)
[2023-06-23] MEDS ORDERED: Bisacodyl 10 MG SUPP PR PRN (11:07)
[2023-06-23] MEDS ORDERED: Zolpidem Tartrate 5 MG TAB PO PRN (11:07)
[2023-06-23] MEDS ORDERED: Nitroglycerin 0.4 MG TAB (25 Tab Bottle) SL PRN (11:07)
[2023-06-23] MEDS ORDERED: Mag-Al 1200 mg/1200 mg/30 ML UDCUP PO PRN (11:07)
[2023-06-23] MEDS ORDERED: Artificial Tear Sol 15 ML BOT EA EYE PRN (11:07)
[2023-06-23] MEDS ORDERED: Milk Of Magnesia 30 ML UDCUP PO PRN (11:07)
[2023-06-23] MEDS ORDERED: diphenhydrAMINE 25 MG CAP PO PRN (11:07)
[2023-06-23] MEDS: Sacubitril 24MG/Valsartan 26 MG TAB PO SCH (11:30)
[2023-06-23] MEDS: Potassium Chloride 10 MEQ TAB PO SCH (11:30)
[2023-06-23] MEDS: Non-Formulary Item 1 EACH (Lactobacillus Acidophilus [Probiotic] 1 CAPSULE Capsule) PO SCH (11:30)
[2023-06-23] MEDS: Carvedilol 3.125 MG TAB PO SCH (11:30)
[2023-06-23] MEDS: Aspirin 325 mg Enteric Coated Tablet PO SCH (11:30)
[2023-06-23] MEDS: Polyethylene Glycol 3350 17 GM Packet PO SCH (11:30)
[2023-06-23] MEDS: Empagliflozin 10 MG TAB PO SCH (11:30)
[2023-06-23] MEDS: Saccharomyces boulardii 250 MG CAP PO SCH (11:30)
[2023-06-23] MEDS: Furosemide 40 MG TAB PO SCH ×2 (11:30→14:13)
[2023-06-23] MEDS: MAGNESIUM OXIDE 200 MG PO SCH (11:30)
[2023-06-23] MEDS: HumaLOG 300 UNITS/3 ML VIAL SC PRN (13:37)
[2023-06-23] MEDS: Albuterol 200 PUFF (6.7GM INHALER) INH PRN (13:43)
[2023-06-23] MEDS: Ascorbic Acid 500 mg Chewable Tablet PO SCH (21:28)
[2023-06-24] MEDS ORDERED: Lisinopril 5 MG TAB PO SCH (09:00)
[2023-06-24] MEDS: Magnesium Oxide 400 MG TAB PO SCH (09:40)
[2023-06-24] MEDS: traMADol HCl 50 MG TAB PO PRN (11:23)
[2023-06-25] MEDS: Guaifenesin DM 100-10/5 ML UDCUP PO PRN (06:00)
[2023-06-25] MEDS ORDERED: guaiFENesin 200 MG TAB PO PRN (13:07)
[2023-06-26] MEDS: Melatonin 3 MG TAB PO PRN (20:38)
[2023-06-26] MEDS ORDERED: Mineral Oil ENEMA PR SCH (22:00)
[2023-06-27] MEDS: Ipratropium/Albuterol 3 ML NEB EZPAP SCH (07:00)
[2023-06-27 12:15] LABS: Actual Bicarbonate (HCO3a) 22.5 mEq/L (22-28); Analyzer IN Cardio OR; Base Excess (BEa) -3.5 mEq/L (-2.0 to +3.0); CO2 Tension 44.6 mmHg (35.0-45.0); Calcium, Ionized (arterial) 1.17 mmol/L (1.12-1.30); Carboxyhemoglobin (COHb) 0.4 gm% (0.0-3.0); Hematocrit-ABG 35 % (42.0-52.0); Hemoglobin (Hb) 11.8 g/dL (14.0-18.0); O2 Tension (PaO2), arterial 467.9 mmHg (> 70.0); Potassium - ABG Lab 4.13 mmol/L (3.70-5.30); pH, Arterial 7.321 (7.35-7.45)
[2023-06-27 12:15] LABS: Actual Bicarbonate (HCO3a) 23.7 mEq/L (22-28); Analyzer IN Cardio OR; Base Excess (BEa) -1.4 mEq/L (-2.0 to +3.0); CO2 Tension 40.9 mmHg (35.0-45.0); Calcium, Ionized (arterial) 1.19 mmol/L (1.12-1.30); Carboxyhemoglobin (COHb) 0.6 gm% (0.0-3.0); Hematocrit-ABG 37 % (42.0-52.0); Hemoglobin (Hb) 12.7 g/dL (14.0-18.0); Potassium - ABG Lab 4.22 mmol/L (3.70-5.30)
[2023-06-27 12:15] LABS: Actual Bicarbonate (HCO3a) 23.8 mEq/L (22-28); Analyzer IN Cardio OR; Base Excess (BEa) -1.9 mEq/L (-2.0 to +3.0); CO2 Tension 44.8 mmHg (35.0-45.0); Calcium, Ionized (arterial) 1.08 mmol/L (1.12-1.30); Carboxyhemoglobin (COHb) 0.3 gm% (0.0-3.0); Hematocrit-ABG 28 % (42.0-52.0); Hemoglobin (Hb) 9.6 g/dL (14.0-18.0); O2 Tension (PaO2), arterial 379.1 mmHg (> 70.0); Potassium - ABG Lab 5.36 mmol/L (3.70-5.30); pH, Arterial 7.343 (7.35-7.45)
[2023-06-27 12:16] LABS: Actual Bicarbonate (HCO3a) 24.7 mEq/L (22-28); Analyzer IN Cardio OR; Base Excess (BEa) -0.9 mEq/L (-2.0 to +3.0); CO2 Tension 44.8 mmHg (35.0-45.0); Calcium, Ionized (arterial) 1.14 mmol/L (1.12-1.30); Carboxyhemoglobin (COHb) 0.3 gm% (0.0-3.0); Hematocrit-ABG 32 % (42.0-52.0); O2 Tension (PaO2), arterial 547.3 mmHg (> 70.0); Potassium - ABG Lab 4.55 mmol/L (3.70-5.30); pH, Arterial 7.359 (7.35-7.45)
[2023-06-27 12:16] LABS: Puncture Site Arterial Line
[2023-06-27 12:16] LABS: Puncture Site Arterial Line
[2023-06-27 12:17] LABS: Puncture Site Arterial Line
[2023-06-27 12:17] LABS: Puncture Site Arterial Line
[2023-06-29] MEDS: Morphine 2 MG/ML VIAL SLOW IVP SCH (01:09)
[2023-06-29 11:45] LABS: #Eosinphils 1.1 thou/uL (0.0-0.7); #Monocytes 0.7 thou/uL (0.11-0.59); #Neutrophils 6.7 thou/uL (1.40-6.50); %Basophils 0.1 % (0.0-1.0); %Eosinophils 11.7 % (0.0-10.0); %Monocytes 7.8 % (0.0-10.0); %Neutrophils 73.7 % (42.0-75.0); Hematocrit 29.6 % (42.0-52.0); Hemoglobin 9.7 g/dL (14.0-18.0); Mean Corpuscular HGB CONC 32.8 g/dL (32.0-36.0); Mean Corpuscular Hemoglobin 32.2 pg (27.0-31.0); Mean Corpuscular Volume 98.3 fl (78.0-98.0); Mean Platelet Volume 8.4 fL (7.4-10.4); Platelet Count 299 10x3/uL (130-400); RBC Distribution Width 13.3 % (11.5-14.5); Red Blood Cell (RBC) Count 3.01 mill/uL (4.70-6.10)
[2023-06-29 12:09] LABS: ALT (SGPT) 8 U/L (8-55); AST (SGOT) 13 U/L (5-34); Alkaline Phosphatase 70 U/L (40-110); Anion Gap 10 mmol/L (10-20); BUN (Urea Nitrogen) 25 mg/dL (8.4-25.7); Bilirubin, Total 0.4 mg/dL (0.2-1.2); Calc. Creatinine Clearance 61 mL/min (70-130); Calcium 8.5 mg/dL (7.8-10.44); Carbon Dioxide 33 mmol/L (23-31); Chloride 92 mmol/L (98-107); Estimated GFR 89; Globulin 2.4 g/dL (2.4-3.5); Glucose 264 mg/dL (83-110); Potassium 4.4 mmol/L (3.5-5.1); Protein, Total 5.4 g/dL (5.8-8.1); Sodium 131 mmol/L (136-145)
[2023-06-30] MEDS: Mineral Oil ENEMA PR PRN (13:10)
[2023-07-01] MEDS: Bisacodyl 5 MG TAB PO PRN (09:14)
[2023-07-02] MEDS: LINZESS 72 MCG PO SCH (10:37)
[2023-07-02] MEDS: Metoprolol Tartrate 25 MG TAB PO SCH (21:00)
[2023-07-03] MEDS: Sodium Chloride 0.9% 500 ML IVPB SCH (06:18)
[2023-07-03] MEDS: Digoxin 0.5 MG/2 ML AMP SLOW IVP SCH (06:21)
[2023-07-03] MEDS: Amiodarone 200 MG TAB PO SCH ×2 (12:32→22:50)
[2023-07-03 17:07] VITALS: BMI 16.9
[2023-07-03] MEDS: Carvedilol 6.25 MG TAB PO SCH (17:51)
[2023-07-04 06:56] LABS: Anion Gap 13 mmol/L (10-20); BUN (Urea Nitrogen) 20 mg/dL (8.4-25.7); Calc. Creatinine Clearance 69 mL/min (70-130); Calcium 8.5 mg/dL (7.8-10.44); Carbon Dioxide 27 mmol/L (23-31); Chloride 96 mmol/L (98-107); Estimated GFR 92; Glucose 194 mg/dL (83-110); Sodium 132 mmol/L (136-145)
[2023-07-04 08:33] VITALS: BP 118/62
[2023-07-04 08:49] VITALS: TEMP 97.8
[2023-07-17] MEDS ORDERED: Amiodarone 200 MG TAB PO SCH (09:00)
[2023-07-31] MEDS ORDERED: Amiodarone 200 MG TAB PO SCH (09:00)
== END 2023-07-04 13:17 | disposition home or self-care (01) | DRG 235 ==
LOC: SURG A 06-22 06:11 → CCU 06-22 10:02 → 2NO 06-30 20:23
PROVIDERS: ADMIT Thoracic Surgery (Cardiothoracic Vascular Surgery); ATTEND Thoracic Surgery (Cardiothoracic Vascular Surgery)
PROC: 02100Z9 Bypass Coronary Artery, One Artery from Left Internal Mammary, Open Approach (ICD-10-PCS; principal; 2023-06-22)
PROC: 021109W Bypass Coronary Artery, Two Arteries from Aorta with Autologous Venous Tissue, Open Approach (ICD-10-PCS; 2023-06-22)
PROC: 06BP4ZZ Excision of Right Saphenous Vein, Percutaneous Endoscopic Approach (ICD-10-PCS; 2023-06-22)
PROC: 5A1221Z Performance of Cardiac Output, Continuous (ICD-10-PCS; 2023-06-22)
PROC: 02L70CK Occlusion of Left Atrial Appendage with Extraluminal Device, Open Approach (ICD-10-PCS; 2023-06-22)
PROC: 4A133R1 Monitoring of Arterial Saturation, Peripheral, Percutaneous Approach (ICD-10-PCS; 2023-06-22)
PROC: 30233J1 Transfusion of Nonautologous Serum Albumin into Peripheral Vein, Percutaneous Approach (ICD-10-PCS; 2023-06-22)
PROC: 02HV33Z Insertion of Infusion Device into Superior Vena Cava, Percutaneous Approach (ICD-10-PCS; 2023-06-23)
PROC: B5181ZA Fluoroscopy of Superior Vena Cava using Low Osmolar Contrast, Guidance (ICD-10-PCS; 2023-06-23)
PROC: B548ZZA Ultrasonography of Superior Vena Cava, Guidance (ICD-10-PCS; 2023-06-23)
PROC: 3E043XZ Introduction of Vasopressor into Central Vein, Percutaneous Approach (ICD-10-PCS; 2023-06-23)
PROC: 0W9930Z Drainage of Right Pleural Cavity with Drainage Device, Percutaneous Approach (ICD-10-PCS; 2023-06-26)
PROC: 0BC78ZZ Extirpation of Matter from Left Main Bronchus, Via Natural or Artificial Opening Endoscopic (ICD-10-PCS; 2023-06-28)
PROC: 0BC88ZZ Extirpation of Matter from Left Upper Lobe Bronchus, Via Natural or Artificial Opening Endoscopic (ICD-10-PCS; 2023-06-28)
DX: I25.10 Atherosclerotic heart disease of native coronary artery without angina pectoris (principal); G93.41 Metabolic encephalopathy; J96.01 Acute respiratory failure with hypoxia; J93.9 Pneumothorax, unspecified; I50.22 Chronic systolic (congestive) heart failure; I11.0 Hypertensive heart disease with heart failure; J30.1 Allergic rhinitis due to pollen; E78.5 Hyperlipidemia, unspecified; E11.9 Type 2 diabetes mellitus without complications; J32.9 Chronic sinusitis, unspecified; R53.81 Other malaise; I25.5 Ischemic cardiomyopathy; Z96.641 Presence of right artificial hip joint; I25.2 Old myocardial infarction; Z85.46 Personal history of malignant neoplasm of prostate; Z79.899 Other long term (current) drug therapy; Z98.890 Other specified postprocedural states; Z82.49 Family history of ischemic heart disease and other diseases of the circulatory system; Z83.3 Family history of diabetes mellitus; Z80.8 Family history of malignant neoplasm of other organs or systems; Z87.891 Personal history of nicotine dependence
CPT/HCPCS: 36415; 36416; 36430; 71045; 80048; 80053; 82805; 85025; 85610; 85730; 86850; 86900; 86901; 93005; 93010; 93306; 93798; 94002; 94640; 94664; A4311; A4648; C1751; J0171; J0665; J1100; J1160; J1642; J1644; J1815; J1885; J2001; J2150; J2250; J2260; J2272; J2405; J2440; J2704; J2720; J3010; J3370; J3475; J3480; J3490; J7030; J7620; P9045; S0017; S0028

== ENCOUNTER 2023-06-21 09:10 | Outpatient (CLI) | payer MEDICARE ==
[2023-06-21 11:02] LABS: Hematocrit 37.8 % (38.8-50.0); Hemoglobin 12.4 g/dL (13.5-17.5); Mean Corpuscular HGB CONC 32.8 g/dL (32.0-36.0); Mean Corpuscular Hemoglobin 31.2 pg (27.0-33.0); Mean Corpuscular Volume 95.2 fl (81.2-95.1); Mean Platelet Volume 8.3 fl (7.4-10.4); Platelet Count 254 10x3/uL (150-450); Red Blood Cell (RBC) Count 3.97 10x6/uL (4.32-5.72); White Blood Cell (WBC) Count 7.6 10x3/uL (3.5-10.5)
== END 2023-06-21 09:11 | disposition home or self-care (01) ==
LOC: LABBT 09:10
PROVIDERS: ATTEND Thoracic Surgery (Cardiothoracic Vascular Surgery)
DX: Z01.818 Encounter for other preprocedural examination (principal); I25.10 Atherosclerotic heart disease of native coronary artery without angina pectoris
CPT/HCPCS: 71046; 85027; 93005; 93010

== ENCOUNTER 2024-05-16 11:49 | Outpatient (CLI) | payer OTHER | END 2024-05-16 11:50 | disposition home or self-care (01) | LOC: RAD 11:49 | PROVIDERS: ATTEND Internal Medicine Critical Care Medicine | DX: R06.00 Dyspnea, unspecified (principal) | CPT/HCPCS: 71046 ==

== ENCOUNTER 2025-03-20 15:00 | Outpatient (CLI) | payer OTHER | END 2025-03-20 15:01 | disposition home or self-care (01) | LOC: RAD 15:00 | PROVIDERS: ATTEND Internal Medicine Critical Care Medicine | DX: R06.00 Dyspnea, unspecified (principal) | CPT/HCPCS: 71046 ==

== ENCOUNTER 2025-04-26 14:30 | Emergency (ER) | payer OTHER ==
[2025-04-26 17:47] LABS: #Basophils Less than 0.03 10x3/uL (0.0-0.2); #Eosinophils 0.21 10x3/uL (0.0-0.7); #Monocytes 0.58 10x3/uL (0.11-0.59); #Neutrophils 7.12 10x3/uL (1.40-6.50); %Basophils 0.2 % (0.0-1.0); %Eosinophils 2.4 % (0.0-10.0); %Lymphocytes 7.7 % (21.0-51.0); %Monocytes 6.7 % (0.0-10.0); %Neutrophils 82.1 % (42.0-75.0); Hematocrit 39.5 % (42.0-52.0); Hemoglobin 12.7 g/dL (14.0-18.0); Mean Corpuscular Hemoglobin 31.1 pg (27.0-31.0); Mean Corpuscular Volume 96.6 fL (78.0-98.0); Platelet Count 281 10x3/uL (130-400); Red Blood Cell (RBC) Count 4.09 mill/uL (4.70-6.10); White Blood Cell (WBC) Count 8.68 10x3/uL (4.8-10.8)
[2025-04-26 17:48] LABS: Bacteria/HPF None Seen HPF (None Seen); CAUTI Indications for Culture Alt mental st,lethar; Glucose, Urine (Dipstick) Greater than 1000 mg/dL (Negative); Leukocyte Negative Leu/uL (Negative); Protein, Urine (Dipstick) Negative (Neg-Trace); RBC/HPF None Seen HPF (0-3); Specific Gravity, Urine 1.033 (1.002-1.036); WBC/HPF None Seen HPF (0-3)
[2025-04-26 17:49] LABS: Urine Culture Reflex No No
[2025-04-26 18:03] LABS: ALT (SGPT) 12 U/L (Less than 45); AST (SGOT) 14 U/L (11-34); Albumin 2.4 g/dL (3.1-4.5); Alkaline Phosphatase 76 U/L (40-110); Anion Gap 13 mmol/L (10-20); BUN (Urea Nitrogen) 16 mg/dL (8.4-25.7); Bilirubin, Total 0.3 mg/dL (0.3-1.2); Calc. Creatinine Clearance 0 mL/min (70-130); Calcium 8.3 mg/dL (7.8-10.44); Carbon Dioxide 27 mmol/L (23-31); Chloride 95 mmol/L (98-107); Globulin 3.1 g/dL (2.4-3.5); Glucose 191 mg/dL (83-110); Potassium 4.3 mmol/L (3.5-5.1); Sodium 131 mmol/L (136-145)
[2025-04-26] MEDS ORDERED: Furosemide 40 MG (4 mL) VIAL ONE (19:32)
== END 2025-04-26 20:20 | disposition home or self-care (01) ==
LOC: ERS 14:30
DX: R63.5 Abnormal weight gain (principal); R79.89 Other specified abnormal findings of blood chemistry; I10 Essential (primary) hypertension; E11.9 Type 2 diabetes mellitus without complications; I25.10 Atherosclerotic heart disease of native coronary artery without angina pectoris; J45.909 Unspecified asthma, uncomplicated; Z87.891 Personal history of nicotine dependence; Z79.899 Other long term (current) drug therapy
CPT/HCPCS: 71045; 80053; 81001; 83880; 84484; 85025; 93005; J1940; 96374